=== PATIENT | female | born 1955 | race Caucasian/White ===

== ENCOUNTER → 2017-12-14 | Outpatient (CLI) | payer OTHER ==
[~2017-12-14] MED LIST: ACCOLATE PO; ALBU3IS INH; ALBU90OI INH; AMLO10 PO; AMOCLA875 PO; BENZ100A PO; BUSP15 PO; CEPH500 PO; CITA20 PO; CLON2 PO; CYCL10 PO; Cipro500 MG PO; Crutch1 EACH MISC; ESOM20 PO; ESTRTP VAG; FLUSAL5005 INH; HYDACE5325 PO; HYDPAM25 PO; LEVO750 PO; LEVSOD100 PO; LIDO5TP TOP; LOVA40; Norco 5-325 Ta1 EACH PO; PROC5 PO; PROM25 PO; Prednisone20 MG PO; Pyridium200 MG PO; SUMA25 PO; TIOT18; TRAZ50 PO; Ultram50 MG PO; ZAFI20 PO
[2017-12-14 11:35] LABS: BASOPHILS ABSOLUTE AUTO 0.06 K/mm3 (0.00-0.23); BASOPHILS PERCENT AUTO 1 % (0-2); EOSINOPHILS ABSOLUTE AUTO 0.18 K/mm3 (0.00-0.68); EOSINOPHILS PERCENT AUTO 2 % (0-6); Hematocrit 36.7 % (33.0-51.0); Hemoglobin 12.4 g/dL (11.5-16.0); IMMATURE GRAN ABSOLUTE AUTO 0.04 K/mm3 (0.00-0.10); IMMATURE GRAN PERCENT AUTO 0 % (0-1); LYMPHOCYTES ABSOLUTE AUTO 3.05 K/mm3 (0.84-5.20); LYMPHOCYTES PERCENT AUTO 30 % (21-46); MONOCYTES ABSOLUTE AUTO 0.83 K/mm3 (0.16-1.47); MONOCYTES PERCENT AUTO 8 % (4-13); Mean Corpuscular HGB 29.5 pg (26.0-34.0); Mean Corpuscular HGB Conc 33.8 g/dL (31.5-36.5); Mean Corpuscular Volume 87 fL (80-100); NEUTROPHILS ABSOLUTE AUTO 5.94 K/mm3 (1.96-9.15); NEUTROPHILS PERCENT AUTO 59 % (41-73); Platelet Count 243 K/mm3 (150-400); RDW Coefficient Variation 14.2 % (11.7-14.2); RDW Standard Deviation 45.3 fL (35.1-46.3); Red Blood Cell Count 4.21 M/mm3 (3.80-5.20)
[2017-12-14 11:56] LABS: Alanine Aminotransfer (ALT/SGP 28 U/L (12-78); Albumin, Blood 3.7 g/dL (3.4-5.0); Albumin/Globulin Ratio 0.9 (0.8-1.8); Alk Phos 55 U/L (40-126); Anion Gap 7 mmol/L (6-16); Aspartate Aminotrans (AST/SGOT 20 U/L (12-37); Bilirubin, Total 0.3 mg/dL (0.1-1.0); Blood Urea Nitrogen 14 mg/dL (8-24); Bun/Creatinine Ratio 18.9 (12.0-20.0); CO2, Blood 29 mmol/L (21-32); Calcium, Blood 8.8 mg/dL (8.5-10.1); Chloride, Blood 104 mmol/L (98-108); Creatinine, Blood 0.74 mg/dL (0.40-1.00); Glomerular Filtration Rate >60 (60-); Glucose, Blood 79 mg/dL (70-99); Potassium, Blood 3.7 mmol/L (3.5-5.5); Sodium, Blood 140 mmol/L (136-145); Thyroid Stimulating Hormone 13.308 uIU/mL (0.360-4.800); Total Protein, Blood 7.7 g/dL (6.4-8.2)
== END | disposition home or self-care (01) ==
LOC: LAB EV 11:32
PROVIDERS: Physician Assistant
DX: E03.9 Hypothyroidism, unspecified (principal); R25.2 Cramp and spasm
CPT/HCPCS: 80053; 84443; 85025

== ENCOUNTER 2018-09-30 21:04 | Inpatient (IN) | payer OTHER ==
[~2018-09-30] VITALS: Ht 167.6 cm; Wt 82.2 kg
[2018-09-30] MEDS ORDERED: TIOT18 INH (21:29)
[2018-09-30] MEDS ORDERED: Crestor40 MG PO (21:29)
[2018-09-30] MEDS ORDERED: RANI150EL PO (21:30)
[2018-09-30 22:00] LABS: BASOPHILS ABSOLUTE AUTO 0.05 K/mm3 (0.00-0.23); BASOPHILS PERCENT AUTO 1 % (0-2); EOSINOPHILS ABSOLUTE AUTO 0.19 K/mm3 (0.00-0.68); EOSINOPHILS PERCENT AUTO 3 % (0-6); Hemoglobin 13.1 g/dL (11.5-16.0); IMMATURE GRAN ABSOLUTE AUTO 0.01 K/mm3 (0.00-0.10); IMMATURE GRAN PERCENT AUTO 0 % (0-1); LYMPHOCYTES ABSOLUTE AUTO 2.96 K/mm3 (0.84-5.20); LYMPHOCYTES PERCENT AUTO 47 % (21-46); MONOCYTES ABSOLUTE AUTO 0.52 K/mm3 (0.16-1.47); MONOCYTES PERCENT AUTO 8 % (4-13); Mean Corpuscular HGB Conc 32.8 g/dL (31.5-36.5); Mean Corpuscular Volume 89 fL (80-100); Mean Platelet Volume 9.4 fL (9.1-12.4); NEUTROPHILS ABSOLUTE AUTO 2.57 K/mm3 (1.96-9.15); NEUTROPHILS PERCENT AUTO 41 % (41-73); Platelet Count 237 K/mm3 (150-400); RDW Coefficient Variation 13.8 % (11.7-14.2); RDW Standard Deviation 44.8 fL (35.1-46.3); Red Blood Cell Count 4.52 M/mm3 (3.80-5.20)
[2018-09-30 22:17] LABS: Alanine Aminotransfer (ALT/SGP 17 U/L (12-78); Albumin, Blood 3.6 g/dL (3.4-5.0); Alk Phos 63 U/L (50-136); Anion Gap 8 mmol/L (6-16); Aspartate Aminotrans (AST/SGOT 9 U/L (12-37); Bilirubin, Total 0.4 mg/dL (0.1-1.0); Blood Urea Nitrogen 15 mg/dL (8-24); Bun/Creatinine Ratio 20.5 (12.0-20.0); CO2, Blood 24 mmol/L (21-32); Calcium, Blood 8.4 mg/dL (8.5-10.1); Chloride, Blood 108 mmol/L (98-108); Creatinine, Blood 0.73 mg/dL (0.40-1.00); Globulin, Blood 3.5 g/dL (2.2-4.0); Glomerular Filtration Rate >60 (60-); Glucose, Blood 83 mg/dL (70-99); Potassium, Blood 3.6 mmol/L (3.5-5.5); Sodium, Blood 140 mmol/L (136-145); Total Protein, Blood 7.1 g/dL (6.4-8.2); Troponin I <0.015 ng/mL (0.000-0.040)
[2018-10-01] MEDS ORDERED: CLON2 PO (03:10)
[2018-10-01] MEDS ORDERED: Advair Hfa 230-12 GM PO (03:11)
[2018-10-01] MEDS ORDERED: OXYB5 PO (03:13)
[2018-10-01] MEDS ORDERED: GAVILAX17 GM PO (03:14)
[2018-10-01] MEDS ORDERED: HEARTBURN RELI150 M1 PO (03:15)
[2018-10-01] MEDS ORDERED: ACET500ER PO (03:20)
[2018-10-01] MEDS ORDERED: BENZ100A PO (03:22)
--- NOTE | 2018-10-01 03:30 | NUR ---
PT ADMITTED TO ROOM ICU 9 UNDER PCU STATUS AT 0210. REPORT RECEIVED. PT SLIDE TRANSFERRED TO BED. ALERT AND ORIENTED. PLEASANT AND COOPERATIVE WITH CARE AND ASSESSMENT. SOMEWHAT SOB. VERY GOOD HISTORIAN. WILL REVIEW CHART AND PLAN OF CARE FOR THIS PT.
[2018-10-01] MEDS ORDERED: LAMO100 PO (03:38)
[2018-10-01] MEDS ORDERED: CLARITIN10 MG PO (03:39)
[2018-10-01] MEDS ORDERED: MAGOXI400 PO (03:41)
[2018-10-01] MEDS ORDERED: MONT10T PO (03:42)
[2018-10-01] MEDS ORDERED: Prilosec Otc20 MG PO (03:43)
[2018-10-01 04:09] LABS: BASOPHILS ABSOLUTE AUTO 0.03 K/mm3 (0.00-0.23); BASOPHILS PERCENT AUTO 0 % (0-2); EOSINOPHILS ABSOLUTE AUTO 0.02 K/mm3 (0.00-0.68); EOSINOPHILS PERCENT AUTO 0 % (0-6); Hematocrit 40.5 % (33.0-51.0); IMMATURE GRAN ABSOLUTE AUTO 0.04 K/mm3 (0.00-0.10); IMMATURE GRAN PERCENT AUTO 1 % (0-1); LYMPHOCYTES ABSOLUTE AUTO 0.96 K/mm3 (0.84-5.20); LYMPHOCYTES PERCENT AUTO 13 % (21-46); MONOCYTES ABSOLUTE AUTO 0.09 K/mm3 (0.16-1.47); MONOCYTES PERCENT AUTO 1 % (4-13); Mean Corpuscular HGB Conc 32.1 g/dL (31.5-36.5); Mean Corpuscular Volume 90 fL (80-100); Mean Platelet Volume 9.7 fL (9.1-12.4); NEUTROPHILS PERCENT AUTO 84 % (41-73); Platelet Count 238 K/mm3 (150-400); RDW Coefficient Variation 13.7 % (11.7-14.2); RDW Standard Deviation 45.5 fL (35.1-46.3); Red Blood Cell Count 4.48 M/mm3 (3.80-5.20); White Blood Cell Count 7.24 K/mm3 (4.00-11.30)
[2018-10-01 04:24] LABS: Anion Gap 6 mmol/L (6-16); Blood Urea Nitrogen 11 mg/dL (8-24); Bun/Creatinine Ratio 16.8 (12.0-20.0); CO2, Blood 25 mmol/L (21-32); Calcium, Blood 7.9 mg/dL (8.5-10.1); Chloride, Blood 113 mmol/L (98-108); Creatinine, Blood 0.65 mg/dL (0.40-1.00); Glomerular Filtration Rate >60 (60-); Glucose, Blood 144 mg/dL (70-99); Potassium, Blood 3.2 mmol/L (3.5-5.5); Sodium, Blood 144 mmol/L (136-145)
[2018-10-01 05:52] LABS: Adenovirus Not Detected (NOT DETECT); Bordetella pertussis Not Detected (NOT DETECT); Chlamydophila pneumoniae Not Detected (NOT DETECT); Coronavirus 229E Not Detected (NOT DETECT); Coronavirus HKU1 Not Detected (NOT DETECT); Coronavirus NL63 Not Detected (NOT DETECT); Coronavirus OC43 Not Detected (NOT DETECT); Human Metapneumovirus Not Detected (NOT DETECT); Human Rhinovirus/Enterovirus Not Detected (NOT DETECT); Influenza A/2009-H1 Not Detected (NOT DETECT); Influenza A/H1 Not Detected (NOT DETECT); Influenza A/H3 Not Detected (NOT DETECT); Influenza B Not Detected (NOT DETECT); Mycoplasma pneumoniae Not Detected (NOT DETECT); Parainfluenza Virus 1 Not Detected (NOT DETECT); Parainfluenza Virus 2 Not Detected (NOT DETECT); Parainfluenza Virus 3 Not Detected (NOT DETECT); Parainfluenza Virus 4 Not Detected (NOT DETECT); Respiratory Syncytial Virus Not Detected (NOT DETECT)
[2018-10-01 06:11] LABS: U Amphetamine Screen Not Detected; U Barbituate Screen Not Detected; U Benzodiazapine Screen DETECTED; U Buprenorphine Screen Not Detected; U Cannabinoids Screen DETECTED; U Cocaine Screen Not Detected; U Methadone Screen Not Detected; U Methamphetamine Screen Not Detected; U Opiates Screen Not Detected; U Oxycodone Screen Not Detected; U Phencyclidine Screen Not Detected; U Propoxyphene Screen Not Detected
--- NOTE | 2018-10-01 06:45 | NUR ---
HAVE REQUIRED TO INCREASE OXYGEN TO 4 L/M SECONDARY TO DESATURATIONS TO 88 PERCENT. PT STATES SHE WAS SUPPOSE TO BE USING OXYGEN AT HOME, AND ALSO CPAP AT NIGHT. SHE STATES THAT SHE HAS NOT BEEN ABLE TO TOLERATE THESE. PT HAS BEEN UP TO COMMODE WITH ASSIST. PT VOIDS Q.S. REPORT GIVEN TO ALLI WOLF
[2018-10-01 07:09] LABS: Influenza A Not Detected (NOT DETECT)
--- NOTE | 2018-10-01 12:16 | NUR ---
0715-ASSUMED CAREO OF PT. PT IS SLEEPING SOUNDLY AT THIS TIME. WILL ALLOW PATIENT TO SLEEP IN A LITTLE BIT. 0800-AWAKENED PT. PT IS ALERT AND ORIENTED. DENIES PAIN AT THIS TIME. 0900-PHYSICAL THERAPIST CAME BY TO EVALUATE AND TREAT PT. PT STATED "IT'S NICE TO SIT UP." 1000-PT IS SITTING ON THE CHAIR AT THIS TIME. PT SEEN BY DR. TELLEZ. UPDATED HIM OF PT'S STATUS. 1219-[facility] OLIVERA AT BEDSIDE TALKING PATINET.
--- NOTE | 2018-10-01 12:35 | NUR ---
Patient was sitting up and alert when I entered the room. Patient immediately shared that about 3 years ago she had 4 family members in a one month span of time. Patient also expressed concern for her family once they hear news of her condition. I conducted a life review, established therapeutic alliance, explored relidious beliefs and provided anxiety containment. I spent some time discussing her grief process and normalizing her experience. I also provided prayer. Patient responded well to all interventions, stating that the prayer was refreshing, her spirits were lifted and that I could be her new brick paver.
--- NOTE | 2018-10-01 13:24 | NUR ---
PT HAD A FEW RUNS OF V-TACH. PT IS ASYMPTOMATIC. INFORMED DR. TELLEZ. ORDERS RECEIVED.
[2018-10-01 14:24] LABS: Anion Gap 7 mmol/L (6-16); Blood Urea Nitrogen 12 mg/dL (8-24); Bun/Creatinine Ratio 19.9 (12.0-20.0); CO2, Blood 22 mmol/L (21-32); Calcium, Blood 8.9 mg/dL (8.5-10.1); Chloride, Blood 110 mmol/L (98-108); Glomerular Filtration Rate >60 (60-); Glucose, Blood 173 mg/dL (70-99); Magnesium, Blood 2.1 mg/dL (1.6-2.4); Potassium, Blood 4.2 mmol/L (3.5-5.5); Sodium, Blood 139 mmol/L (136-145)
[2018-10-01 14:55] LABS: Troponin I <0.015 ng/mL (0.000-0.040)
[2018-10-01 14:56] LABS: Thyroid Stimulating Hormone 0.165 uIU/mL (0.360-4.800)
--- NOTE | 2018-10-01 14:59 | NUR ---
DR. TELLEZ CAME BY TO SEE PT. UPDATED HIM OF PT'S STATUS.
--- NOTE | 2018-10-01 15:49 | NUR ---
ECHOCARDIOGRAM DONE AT THIS TIME.
--- NOTE | 2018-10-01 16:33 | NUR ---
SEEN BY DR. JIMENEZ. UPDATED HER OF PT'S STATUS.
--- NOTE | 2018-10-01 17:03 | NUR ---
Echocardiogram completed.
--- NOTE | 2018-10-01 18:15 | NUR ---
SHIFT SUMMARY: PT STILL HAS OCCASSIONAL PRODUCTIVE COUGH. PT HAS BEEN OUT OF BED TO THE CHAIR MOST OF THE DAY WITH A FEW TRIPS TO THE BATHROOM. ECHOCARDIOGRAM DONE TODAY. STILL ON O2 @ 2LPM NC WITH OU2 SATURATION >90%. AFEBRILE.
--- NOTE | 2018-10-01 19:19 | NUR ---
ASSUMED CARE OF PT, BEDSIDE REPORT RECEIVED. PT IS RESTING QUIETLY RECLINING IN BED, SENTANCES ARE FULL, NO INCREASED WORK OF BREATHING NOTED WITH INCREASE IN ACTIVITY UP TO TOILET. PT DENIES COUGH BEING PRODUCTIVE OF SPUTUM TODAY, STATES THAT IT HAS ON OCCASION BEEN PRODUCTIVE AT HOME.
[2018-10-02 03:40] LABS: BASOPHILS ABSOLUTE AUTO 0.01 K/mm3 (0.00-0.23); BASOPHILS PERCENT AUTO 0 % (0-2); EOSINOPHILS PERCENT AUTO 0 % (0-6); Hematocrit 41.3 % (33.0-51.0); Hemoglobin 13.3 g/dL (11.5-16.0); IMMATURE GRAN ABSOLUTE AUTO 0.07 K/mm3 (0.00-0.10); IMMATURE GRAN PERCENT AUTO 1 % (0-1); LYMPHOCYTES ABSOLUTE AUTO 1.01 K/mm3 (0.84-5.20); LYMPHOCYTES PERCENT AUTO 8 % (21-46); MONOCYTES ABSOLUTE AUTO 0.38 K/mm3 (0.16-1.47); MONOCYTES PERCENT AUTO 3 % (4-13); Mean Corpuscular HGB 29.2 pg (26.0-34.0); Mean Corpuscular HGB Conc 32.2 g/dL (31.5-36.5); Mean Corpuscular Volume 91 fL (80-100); Mean Platelet Volume 9.6 fL (9.1-12.4); NEUTROPHILS PERCENT AUTO 89 % (41-73); Platelet Count 258 K/mm3 (150-400); Red Blood Cell Count 4.56 M/mm3 (3.80-5.20); White Blood Cell Count 13.27 K/mm3 (4.00-11.30)
[2018-10-02 03:59] LABS: Anion Gap 5 mmol/L (6-16); Blood Urea Nitrogen 10 mg/dL (8-24); Bun/Creatinine Ratio 15.5 (12.0-20.0); CO2, Blood 27 mmol/L (21-32); Calcium, Blood 8.8 mg/dL (8.5-10.1); Chloride, Blood 111 mmol/L (98-108); Creatinine, Blood 0.65 mg/dL (0.40-1.00); Glomerular Filtration Rate >60 (60-); Glucose, Blood 157 mg/dL (70-99); Sodium, Blood 143 mmol/L (136-145)
--- NOTE | 2018-10-02 06:32 | NUR ---
PT RESTS QUIETLY THROUGHOUT SHIFT, RIGHT SHOULDER PAIN CONTINUES, CONTROLLED WITH TYLENOL ADMINISTERED X 2 THIS SHIFT. C/O NAUSEA AT HS, ZOFRAN ADMIN, PT REPORTED THAT NAUSEA LEVEL REMAINED UNCHANGED, STATED THAT SHE BELIEVES THAT STOMACH UPSET IS RELATED TO VEGETABLES THAT SHE ATE WITH DINNER LAST NOC. ORDER OBTAINED FOR GI COCKTAIL FOLLOWING WHICH PT REPORTED IMPROVEMENT IN NAUSEA. PT C/O DULL SUBSTERNAL CHEST PAIN NEAR MIDNOC, EKG OBTAINED, NORMAL SINUS RHYTHM, PT DID REPORT IMPROVEMENT IN PAIN FOLLOWING GI COCKTAIL ADMINISTRATION. OTHERWISE NO ACUTE CHANGES THIS SHIFT.
--- NOTE | 2018-10-02 10:23 | NUR ---
0730-ASSUMED CARE OF PT. PT IS ASLEEP AT THIS TIME. STILL WITH OCCASSIONAL PRODUCTIVE COUGH. 0835-DR. TELLEZ CAME BY TO SEE PT. UPDATED HIM OF PT'S STATUS. PHYSICAL THERAPIST CAME TO WORK WITH PT WELL. 0930-PT SITTING ON THE CHAIR AT THIS TIME. EATING BREAKFAST. AMBULATING IN THE ROOM USING THE WALKER. REMINDED PT TO ALWAYS CALL WHEN SHE NEEDED TO GO TO THE BATHROOM AND ONCE SHE'S DONE USING THE TOILET.
--- NOTE | 2018-10-02 16:32 | NUR ---
PT WAS TRANSFERED TO ROOM 343. GAVE REPORT TO ALLI MCLEOD IN MEDICAL FLOOR.
--- NOTE | 2018-10-02 17:56 | NUR ---
SHIFT SUMMARY PATIENT PLEASANT. BROUGHT FROM ICU AT 1600 HOUR. PATIENT ALERT AND ORIENTED, NO ACUTE CONCERNS AT THIS TIME. SHE IS 1PA IN THE ROOM TO THE BATHROOM. STILL HAS NOT HAD A BOWEL MOVEMENT.
--- NOTE | 2018-10-02 18:40 | NUR ---
PATIENT STARTED COMPLAINING OF CHEST PAIN. SHE WAS ON THE TOILET TRYING TO HAVE A BOWEL MOVEMENT. PATIENT IS CONCERNED ABUT HER CHEST. PATIENT HAD THE SAME PAIN LAST NIGHT IN THE ICU. EKG WAS OBTAINED LAST NIGHT AND WAS NORMAL PATIENT IN NORMAL SINUS RHYTHM. PATIENT WAS GIVEN GI COCKTAIL THAT TOOK THE PAIN AWAY LAST NIGHT IN THE ER. PATIENT WAS GIVEN PRN GI COCKTAIL TO MANAGE. WILL REASSESS TONIGHT.
[2018-10-03 05:18] LABS: BASOPHILS ABSOLUTE AUTO 0.02 K/mm3 (0.00-0.23); BASOPHILS PERCENT AUTO 0 % (0-2); EOSINOPHILS PERCENT AUTO 0 % (0-6); Hematocrit 41.3 % (33.0-51.0); Hemoglobin 13.5 g/dL (11.5-16.0); IMMATURE GRAN ABSOLUTE AUTO 0.11 K/mm3 (0.00-0.10); IMMATURE GRAN PERCENT AUTO 1 % (0-1); LYMPHOCYTES ABSOLUTE AUTO 1.05 K/mm3 (0.84-5.20); LYMPHOCYTES PERCENT AUTO 8 % (21-46); MONOCYTES ABSOLUTE AUTO 0.52 K/mm3 (0.16-1.47); MONOCYTES PERCENT AUTO 4 % (4-13); Mean Corpuscular HGB 29.4 pg (26.0-34.0); Mean Corpuscular HGB Conc 32.7 g/dL (31.5-36.5); Mean Corpuscular Volume 90 fL (80-100); Mean Platelet Volume 9.5 fL (9.1-12.4); NEUTROPHILS ABSOLUTE AUTO 11.75 K/mm3 (1.96-9.15); NEUTROPHILS PERCENT AUTO 87 % (41-73); Platelet Count 272 K/mm3 (150-400); RDW Coefficient Variation 14.2 % (11.7-14.2); RDW Standard Deviation 47.3 fL (35.1-46.3); Red Blood Cell Count 4.59 M/mm3 (3.80-5.20); White Blood Cell Count 13.45 K/mm3 (4.00-11.30)
[2018-10-03 05:37] LABS: Anion Gap 6 mmol/L (6-16); Blood Urea Nitrogen 11 mg/dL (8-24); Bun/Creatinine Ratio 20.1 (12.0-20.0); CO2, Blood 26 mmol/L (21-32); Calcium, Blood 8.7 mg/dL (8.5-10.1); Chloride, Blood 108 mmol/L (98-108); Creatinine, Blood 0.55 mg/dL (0.40-1.00); Glomerular Filtration Rate >60 (60-); Glucose, Blood 136 mg/dL (70-99); Sodium, Blood 140 mmol/L (136-145)
--- NOTE | 2018-10-03 07:20 | NUR ---
SHIFT SUMMARY PT REPORTS SHE HAD DIFFICULTY SLEEPING LAST NIGHT DUE TO HER STOMACH HURTING. PT WAS MEDICATED THIS AM W/GI COCKTAIL PER ORDERS & HAD MEDIUM SOFT LIGHT GREEN/BROWN BM. VSS. AOX4. SPO2 @91-94% ON 2L O2. LUNGS SOUND COURSE T/O, PT HAS E/U BREATHING W/OCCASIONAL PRODUCTIVE MOIST COUGH, SMALL AMOUNT GREENISH/YELLOW SPUTUM. REPORTS PAIN IN RIGHT SHOULDER BUT DENIES NEED FOR PAIN MEDICATION. CALL LIGHT IS IN REACH & BED IS IN LOWEST POSITION.
--- NOTE | 2018-10-03 18:31 | NUR ---
SHIFT SUMMARY PATIENT HAS BEEN PLEASANT. INDEPENDENT IN HER ROOM. HAD A CHEST XRAY THIS MORNING. THE RESULTS HAVE BEEN GIVEN TO THE PATIENT. SHE IS PLEASANT AND JUST WANTS TO GO HOME. SHE KNOWS THAT SHE IS FEELING BETTER HAS BEEN TITRATED DOWN TO 1L O2 VIA NC. SHE REPORTS THAT SHE IS FEELING GOOD AND DENIES SHORTNESS OF BREATH.
--- NOTE | 2018-10-04 04:12 | NUR ---
SHIFT SUMMARY PT SLEPT SOUNDLY T/O NIGHT. NO ACUTE CHANGES. VSS. AOX4. SPO2 @93-98% ON 1L O2. LUNGS SOUND COURSE T/O, PT HAS OCCASIONAL PRODUCTIVE COUGH W/SCANT AMOUNT GREENISH/YELLOW SPUTUM. DENIES N/V & SOB WHILE @REST. REPORTS 9/10 PAIN IN R. SHOULDER MEDICATED 1X W/ULTRAM PER ORDERS. CALL LIGHT IN REACH & BED IN LOWEST POSITION.
[2018-10-04 06:36] LABS: BASOPHILS ABSOLUTE AUTO 0.01 K/mm3 (0.00-0.23); BASOPHILS PERCENT AUTO 0 % (0-2); EOSINOPHILS PERCENT AUTO 0 % (0-6); Hematocrit 43.5 % (33.0-51.0); Hemoglobin 14.2 g/dL (11.5-16.0); IMMATURE GRAN ABSOLUTE AUTO 0.05 K/mm3 (0.00-0.10); IMMATURE GRAN PERCENT AUTO 1 % (0-1); LYMPHOCYTES ABSOLUTE AUTO 1.69 K/mm3 (0.84-5.20); LYMPHOCYTES PERCENT AUTO 20 % (21-46); MONOCYTES ABSOLUTE AUTO 0.55 K/mm3 (0.16-1.47); MONOCYTES PERCENT AUTO 7 % (4-13); Mean Corpuscular HGB Conc 32.6 g/dL (31.5-36.5); Mean Corpuscular Volume 89 fL (80-100); Mean Platelet Volume 9.6 fL (9.1-12.4); NEUTROPHILS ABSOLUTE AUTO 6.11 K/mm3 (1.96-9.15); NEUTROPHILS PERCENT AUTO 73 % (41-73); Platelet Count 292 K/mm3 (150-400); RDW Coefficient Variation 14.4 % (11.7-14.2); RDW Standard Deviation 46.5 fL (35.1-46.3); White Blood Cell Count 8.41 K/mm3 (4.00-11.30)
[2018-10-04 06:54] LABS: Anion Gap 5 mmol/L (6-16); Blood Urea Nitrogen 14 mg/dL (8-24); Bun/Creatinine Ratio 21.6 (12.0-20.0); CO2, Blood 27 mmol/L (21-32); Calcium, Blood 8.9 mg/dL (8.5-10.1); Chloride, Blood 108 mmol/L (98-108); Creatinine, Blood 0.65 mg/dL (0.40-1.00); Glomerular Filtration Rate >60 (60-); Glucose, Blood 129 mg/dL (70-99); Potassium, Blood 4.2 mmol/L (3.5-5.5); Sodium, Blood 140 mmol/L (136-145)
--- NOTE | 2018-10-04 08:40 | NUR ---
PT REPORTING CHEST PRESSURE, STATES FEELS LIKE "SOMETHING PUSHING ME INTO THE BED" RATING 8-9/[address] HAMZAH MCCORMICK, NEW ORDERS FOR STAT EKG, 1 MG ATIVAN PO NOW AND NITRO SL 0.4MG NOW. ADMINISTERED NITRO AND ATIVAN, DR MCCORMICK AT BEDSIDE FOR EKG. ADMINISTERED ULTRAM FOR REMAIN PAIN. CLARIFIED THAT IT IS OK TO CONTINUE WITH ANTIANXIETY MEDICATIONS. NEW ORDERS TO HOLD NEXT DOSE OF SOLUMEDROL. WILL CONTINUE TO MONITOR.
[2018-10-04] MEDS ORDERED: AZIT250 PO (16:01)
[2018-10-04] MEDS ORDERED: ACET325 PO (16:01)
[2018-10-04] MEDS ORDERED: TRAM50 PO (16:02)
--- NOTE | 2018-10-04 18:06 | NUR ---
DISCHARGE SUMMARY PT A&OX4. ANXIOUS AT TIMES, CALM AND COOPERATIVE WITH CARE. PT RESTING IN BED DURING SHIFT, SBA WITH FWW IN ROOM. PT REPORTS CHEST PRESSURE THIS AM, RESOLVED AFTER 1 DOSE OF NITRO, 1 MG PO ATIVAN AND DOSE OF ULTRAM. DR MCCORMICK AWARE AND AT BEDSIDE THIS AM. DR MCCORMICK, NEW ORDER HOLD IV STEROID. PT REPORTS HEADACHE, MEDICATED PER EMAR. PT SOB WITH EXERTION, >90% ON 1L O2 VIA NC, RECEIVING BREATHING TREATMENTS. HOME O2 EVALUATION COMPLETED, PT NEEDS O2 DURING EXERCISE. PT REPORTS NAUSEA WITH LUNCH, MEDICATED PER EMAR. PT RECEIVING PO ANTIBIOTICS. VSS. NO OTHER ACUTE CHANGES NOTED DURING SHIFT. PT EDUCATED ON DISCHARGE INSTRUCTIONS, MEDICATIONS, OXYGEN USE AT HOME AND FOLLOW UP APPOINTMENTS. PT INFORMATION FAXED TO [facility] PER STAFF, NATAN, REQUEST. PT LEFT ROOM VIA WHEELCHAIR AT 1700. PT STABLE UPON DISCHARGE.
== END 2018-10-04 17:05 | disposition home or self-care (01) | DRG 190 ==
LOC: ER 21:04 → ICUW 10-01 00:34 → ERHOLD 10-01 00:34 → ICUW 10-01 02:08 → MEDS 10-02 16:20 → ENPENDDIS 10-04 14:00 → MEDS 10-04 17:05
PROVIDERS: Emergency Medicine; Family Medicine; Internal Medicine Cardiovascular Disease; Nurse Practitioner Acute Care; ADMIT Internal Medicine
DX: J44.1 Chronic obstructive pulmonary disease with (acute) exacerbation (principal); J96.01 Acute respiratory failure with hypoxia; I47.1 Supraventricular tachycardia; I10 Essential (primary) hypertension; R29.6 Repeated falls; E87.6 Hypokalemia; R73.9 Hyperglycemia, unspecified; T38.0X5A Adverse effect of glucocorticoids and synthetic analogues, initial encounter; G47.33 Obstructive sleep apnea (adult) (pediatric); E03.9 Hypothyroidism, unspecified; K21.9 Gastro-esophageal reflux disease without esophagitis; F31.9 Bipolar disorder, unspecified; K59.00 Constipation, unspecified; M25.511 Pain in right shoulder; F41.9 Anxiety disorder, unspecified; Z91.81 History of falling; Z88.6 Allergy status to analgesic agent; Z88.8 Allergy status to other drugs, medicaments and biological substances; Z79.899 Other long term (current) drug therapy
CPT/HCPCS: 36415; 71046; 73010; 80048; 80053; 82947; 83036; 83735; 84439; 84443; 84484; 85025; 87486; 87581; 87633; 87798; 93005; 93010; 93306; 94640; 94644; 94760; 94761; 96361; 96365; 96375; 97110; 97116; 97162; 97530; 99285-25; J0696; J1650; J2405; J2920; J2930; J3010; J3480; J7030; J7050

== ENCOUNTER 2018-12-28 06:54 | Day surgery (SDC) | payer OTHER ==
[~2018-12-28] VITALS: Ht 167.6 cm; Wt 77.7 kg
[~2018-12-28 06:54] MED LIST changes: +ACET325 PO; +ACET500ER PO; +AZIT250 PO; +Advair Hfa 230-12 GM PO; +CLARITIN10 MG PO; +Crestor40 MG PO; +GAVILAX17 GM PO; +HEARTBURN RELI150 M1 PO; +LAMO100 PO; +MAGOXI400 PO; +MONT10T PO; +OXYB5 PO; +Prilosec Otc20 MG PO; +RANI150EL PO; +TIOT18 INH; +TRAM50 PO
== END 2018-12-28 08:59 | disposition home or self-care (01) ==
LOC: ORSCSDS 06:54
PROVIDERS: Surgery
PROC: 0DBK8ZX Excision of Ascending Colon, Via Natural or Artificial Opening Endoscopic, Diagnostic (ICD-10-PCS; principal; 2018-12-28 08:00)
PROC: 0DBH8ZX Excision of Cecum, Via Natural or Artificial Opening Endoscopic, Diagnostic (ICD-10-PCS; principal; 2018-12-28 08:00)
PROC: 0DBL8ZX Excision of Transverse Colon, Via Natural or Artificial Opening Endoscopic, Diagnostic (ICD-10-PCS; principal; 2018-12-28 08:00)
PROC: 0DBM8ZX Excision of Descending Colon, Via Natural or Artificial Opening Endoscopic, Diagnostic (ICD-10-PCS; principal; 2018-12-28 08:00)
DX: Z12.11 Encounter for screening for malignant neoplasm of colon (principal); Z86.010 Personal history of colon polyps; D12.3 Benign neoplasm of transverse colon; D12.2 Benign neoplasm of ascending colon; D12.0 Benign neoplasm of cecum; D12.4 Benign neoplasm of descending colon; G47.33 Obstructive sleep apnea (adult) (pediatric); J44.9 Chronic obstructive pulmonary disease, unspecified; I10 Essential (primary) hypertension; Z79.899 Other long term (current) drug therapy
CPT/HCPCS: 88305; J0330; J1980; J2405; J2704; J7120

== ENCOUNTER → 2019-01-13 | Outpatient (CLI) | payer OTHER | LOC: LAB EV 08:06 → LAB SHORT 08:06 | DX: R05 Cough (principal) | CPT/HCPCS: 87070; 87205 ==

== ENCOUNTER 2019-02-17 11:09 | Day surgery (SDC) | payer OTHER ==
[~2019-02-17] VITALS: Ht 167.6 cm; Wt 74.4 kg
[~2019-02-17 11:09] MED LIST changes: +ACID REDUCER20 MG PO; +ALBU90OI6 INH; +AMLO5 PO; +BUDE6HFA INH; +HYDPAM100 PO; +Imitrex100 MG PO; +Mucinex D 1,201 EACH PO; +[UNRECOGNIZED DRUG - OTHER]
--- NOTE | 2019-02-17 13:00 | NUR ---
02/17/19 Danay Villa RN REPORTED BILATERAL WHEEZES TO DR CASTELLANOS. SHANICE ORDERED BY DR CASTELLANOS. PT IS NOW DOING NEBULIZER TREATMENT.
== END 2019-02-17 14:23 | disposition home or self-care (01) ==
LOC: ORSCSDS 11:09
PROVIDERS: Student in an Organized Health Care Education/Training Program
PROC: 0DB68ZX Excision of Stomach, Via Natural or Artificial Opening Endoscopic, Diagnostic (ICD-10-PCS; principal; 2019-02-17 12:45)
DX: K21.9 Gastro-esophageal reflux disease without esophagitis (principal); K29.70 Gastritis, unspecified, without bleeding; K22.8 Other specified diseases of esophagus; I10 Essential (primary) hypertension; J44.9 Chronic obstructive pulmonary disease, unspecified; G47.33 Obstructive sleep apnea (adult) (pediatric); J45.909 Unspecified asthma, uncomplicated; Z79.899 Other long term (current) drug therapy
CPT/HCPCS: 88305; 88312; 88342; J2704; J7120

== ENCOUNTER → 2019-05-17 | Outpatient (CLI) | payer OTHER | LOC: LAB SHORT 20:13 → LAB 20:13 | PROVIDERS: Nurse Practitioner Family | DX: Z01.419 Encounter for gynecological examination (general) (routine) without abnormal findings (principal) | CPT/HCPCS: G0145 ==

== ENCOUNTER 2019-06-11 10:23 | Emergency (ER) | payer OTHER ==
[~2019-06-11] VITALS: Ht 167.6 cm; Wt 64.4 kg
[2019-06-11 11:29] LABS: BASOPHILS ABSOLUTE AUTO 0.05 K/mm3 (0.00-0.23); BASOPHILS PERCENT AUTO 1 % (0-2); EOSINOPHILS PERCENT AUTO 2 % (0-6); Hematocrit 43.2 % (33.0-51.0); Hemoglobin 14.6 g/dL (11.5-16.0); IMMATURE GRAN ABSOLUTE AUTO 0.02 K/mm3 (0.00-0.10); IMMATURE GRAN PERCENT AUTO 0 % (0-1); LYMPHOCYTES ABSOLUTE AUTO 2.75 K/mm3 (0.84-5.20); LYMPHOCYTES PERCENT AUTO 32 % (21-46); MONOCYTES ABSOLUTE AUTO 0.68 K/mm3 (0.16-1.47); MONOCYTES PERCENT AUTO 8 % (4-13); Mean Corpuscular HGB 29.6 pg (26.0-34.0); Mean Corpuscular HGB Conc 33.8 g/dL (31.5-36.5); Mean Corpuscular Volume 88 fL (80-100); Mean Platelet Volume 9.8 fL (9.1-12.4); NEUTROPHILS ABSOLUTE AUTO 4.83 K/mm3 (1.96-9.15); NEUTROPHILS PERCENT AUTO 57 % (41-73); Platelet Count 241 K/mm3 (150-400); RDW Coefficient Variation 13.5 % (11.7-14.2); RDW Standard Deviation 43.4 fL (35.1-46.3); Red Blood Cell Count 4.93 M/mm3 (3.80-5.20); White Blood Cell Count 8.53 K/mm3 (4.00-11.30)
[2019-06-11 11:42] LABS: Alanine Aminotransfer (ALT/SGP 17 U/L (12-78); Albumin, Blood 3.7 g/dL (3.4-5.0); Albumin/Globulin Ratio 1.1 (0.8-1.8); Alk Phos 64 U/L (50-136); Anion Gap 4 mmol/L (6-16); Aspartate Aminotrans (AST/SGOT 9 U/L (12-37); Bilirubin, Total 0.3 mg/dL (0.1-1.0); Blood Urea Nitrogen 8 mg/dL (8-24); Bun/Creatinine Ratio 10.9 (12.0-20.0); CO2, Blood 26 mmol/L (21-32); Calcium, Blood 8.9 mg/dL (8.5-10.1); Chloride, Blood 112 mmol/L (98-108); Creatinine, Blood 0.74 mg/dL (0.40-1.00); Globulin, Blood 3.5 g/dL (2.2-4.0); Glomerular Filtration Rate >60 (60-); Glucose, Blood 85 mg/dL (70-99); Potassium, Blood 3.5 mmol/L (3.5-5.5); Sodium, Blood 142 mmol/L (136-145); Total Protein, Blood 7.2 g/dL (6.4-8.2); Troponin I <0.015 ng/mL (0.000-0.040)
== END 2019-06-11 15:35 | disposition home or self-care (01) ==
LOC: ER 10:23
PROVIDERS: Physician Assistant
DX: S09.90XA Unspecified injury of head, initial encounter (principal); S40.011A Contusion of right shoulder, initial encounter; J44.9 Chronic obstructive pulmonary disease, unspecified; K21.9 Gastro-esophageal reflux disease without esophagitis; I10 Essential (primary) hypertension; F31.9 Bipolar disorder, unspecified; F41.9 Anxiety disorder, unspecified; E03.9 Hypothyroidism, unspecified; Z88.6 Allergy status to analgesic agent; Z88.8 Allergy status to other drugs, medicaments and biological substances; Z79.899 Other long term (current) drug therapy; W01.10XA Fall on same level from slipping, tripping and stumbling with subsequent striking against unspecified object, initial encounter
CPT/HCPCS: 36415; 70450; 72100; 73030; 80053; 84484; 85025; 93005; 93010; 99284-25

== ENCOUNTER → 2019-06-13 | Outpatient (CLI) | payer OTHER ==
[2019-06-14 15:21] LABS: Appearance, Urine Hazy (Clear); Bilirubin, Urine Neg (Neg); Blood, Urine 2+ (Neg); Color, Urine Yellow (P-Yellow); Glucose Qualitative, Urine Neg (Neg); Ketones, Urine Neg (Neg); Leukocyte Esterase, Urine 3+ (Neg); Nitrite, Urine Neg (Neg); Protein, Urine 1+ (Neg); Urobilinogen, Urine NORM (Normal)
[2019-06-14 16:08] LABS: White Blood Cells, Urine TNTC /hpf (0-5)
[2019-06-14 16:10] LABS: Bacteria Many /hpf; Squamous Epithelial Cells Few /hpf (Few)
== END ==
LOC: LAB 18:00 → LAB SHORT 18:00
PROVIDERS: Nurse Practitioner Family
DX: N39.0 Urinary tract infection, site not specified (principal)
CPT/HCPCS: 81001; 87077; 87086; 87186

== ENCOUNTER → 2019-07-26 | Outpatient (CLI) | payer OTHER ==
[~2019-07-26] MED LIST changes: +OXYC5 PO
[2019-07-26 20:10] LABS: Appearance, Urine Clear (Clear); Bilirubin, Urine Neg (Neg); Blood, Urine Neg (Neg); Color, Urine Yellow (P-Yellow); Glucose Qualitative, Urine Neg (Neg); Ketones, Urine Neg (Neg); Leukocyte Esterase, Urine 1+ (Neg); Nitrite, Urine Neg (Neg); Protein, Urine 1+ (Neg); Specific Gravity, Urine 1.005 (1.003-1.022); Urobilinogen, Urine NORM (Normal)
[2019-07-26 20:17] LABS: Bacteria Mod /hpf; Red Blood Cells, Urine Not Seen /hpf (0-2); Squamous Epithelial Cells Rare /hpf (Few); White Blood Cells, Urine 0-2 /hpf (0-5)
== END ==
LOC: LAB 19:37 → LAB SHORT 19:37
PROVIDERS: Nurse Practitioner Family
DX: N39.0 Urinary tract infection, site not specified (principal)
CPT/HCPCS: 81001; 87086

== ENCOUNTER 2019-07-29 17:22 | Emergency (ER) | payer OTHER ==
[~2019-07-29] VITALS: Ht 167.6 cm; Wt 56.7 kg
[~2019-07-29 17:22] MED LIST changes: -OXYC5 PO
[2019-07-29] MEDS ORDERED: OXYC5 PO (17:28)
[2019-07-29 18:07] LABS: Hematocrit 40.3 % (33.0-51.0); Hemoglobin 13.5 g/dL (11.5-16.0); Mean Corpuscular HGB Conc 33.5 g/dL (31.5-36.5); Mean Corpuscular Volume 90 fL (80-100); Mean Platelet Volume 9.5 fL (9.1-12.4); Platelet Count 290 K/mm3 (150-400); RDW Coefficient Variation 12.8 % (11.7-14.2); RDW Standard Deviation 42.4 fL (35.1-46.3); White Blood Cell Count 7.62 K/mm3 (4.00-11.30)
[2019-07-29 18:32] LABS: Anion Gap 8 mmol/L (6-16); Blood Urea Nitrogen 12 mg/dL (8-24); Bun/Creatinine Ratio 17.2 (12.0-20.0); CO2, Blood 24 mmol/L (21-32); Calcium, Blood 8.9 mg/dL (8.5-10.1); Chloride, Blood 106 mmol/L (98-108); Glomerular Filtration Rate >60 (60-); Glucose, Blood 62 mg/dL (70-99); Sodium, Blood 138 mmol/L (136-145)
== END 2019-07-29 20:28 | disposition short-term general hospital (02) ==
LOC: ER 17:22
PROVIDERS: Emergency Medicine
DX: K22.2 Esophageal obstruction (principal); E87.6 Hypokalemia; I10 Essential (primary) hypertension; K21.9 Gastro-esophageal reflux disease without esophagitis; J44.9 Chronic obstructive pulmonary disease, unspecified; F31.9 Bipolar disorder, unspecified; Z88.6 Allergy status to analgesic agent; Z79.899 Other long term (current) drug therapy; Z79.891 Long term (current) use of opiate analgesic
CPT/HCPCS: 36415; 80048; 85027; 96361; 96365; 99284-25; J7030

== ENCOUNTER → 2019-09-05 | Outpatient (CLI) | payer OTHER ==
[~2019-09-05] MED LIST changes: +OXYC5 PO
[2019-09-06 17:20] LABS: Appearance, Urine Clear (Clear); Bilirubin, Urine Neg (Neg); Blood, Urine 1+ (Neg); Color, Urine Yellow (P-Yellow); Glucose Qualitative, Urine Neg (Neg); Ketones, Urine Neg (Neg); Leukocyte Esterase, Urine 3+ (Neg); Nitrite, Urine Pos (Neg); Protein, Urine 1+ (Neg); Urobilinogen, Urine NORM (Normal)
[2019-09-06 18:16] LABS: Bacteria Many /hpf; Red Blood Cells, Urine 0-2 /hpf (0-2); Squamous Epithelial Cells Few /hpf (Few)
== END ==
LOC: LAB SHORT 18:00 → LAB 18:00
PROVIDERS: Nurse Practitioner Family
DX: N39.0 Urinary tract infection, site not specified (principal)
CPT/HCPCS: 81001; 87077; 87086; 87186

== ENCOUNTER → 2019-10-24 | Outpatient (CLI) | payer OTHER | LOC: LAB 19:36 → LAB SHORT 19:36 | DX: G43.909 Migraine, unspecified, not intractable, without status migrainosus (principal) | CPT/HCPCS: 87070; 87205 ==

== ENCOUNTER → 2019-12-06 | Outpatient (CLI) | payer OTHER | LOC: LAB SHORT 10:40 → LAB EV 10:40 | DX: R35.0 Frequency of micturition (principal) | CPT/HCPCS: 87086 ==

== ENCOUNTER → 2020-01-05 | Outpatient (CLI) | payer OTHER ==
[2020-01-05 13:40] LABS: Thyroid Stimulating Hormone 7.23 uIU/mL (0.360-4.800)
[2020-01-09 17:02] LABS: Free Thyroxine 1.08 ng/dL (0.70-1.60)
== END ==
LOC: LAB SHORT 11:58 → LAB 11:58
PROVIDERS: Nurse Practitioner Family
DX: E03.9 Hypothyroidism, unspecified (principal)
CPT/HCPCS: 84439; 84443

== ENCOUNTER → 2020-02-13 | Outpatient (CLI) | payer OTHER ==
[2020-02-14 17:44] LABS: Bilirubin, Urine Neg (Neg); Blood, Urine Neg (Neg); Glucose Qualitative, Urine Neg (Neg); Ketones, Urine Neg (Neg); Leukocyte Esterase, Urine Neg (Neg); Nitrite, Urine Neg (Neg); Protein, Urine Neg (Neg); Urobilinogen, Urine NORM (Normal)
[2020-02-14 18:24] LABS: Appearance, Urine Clear (Clear); Color, Urine Pale Yellow (P-Yellow)
== END ==
LOC: LAB SHORT 21:00 → LAB 21:00
PROVIDERS: Nurse Practitioner Family
DX: N39.0 Urinary tract infection, site not specified (principal)
CPT/HCPCS: 81003; 87086

== ENCOUNTER → 2020-03-02 | Outpatient (CLI) | payer OTHER ==
[2020-03-02 12:54] LABS: Free Thyroxine 1.14 ng/dL (0.70-1.60)
[2020-03-02 12:57] LABS: Thyroid Stimulating Hormone 7.88 uIU/mL (0.360-4.800)
== END ==
LOC: LAB SHORT 11:08 → LAB 11:08
PROVIDERS: Nurse Practitioner Family
DX: E03.9 Hypothyroidism, unspecified (principal)
CPT/HCPCS: 84439; 84443

== ENCOUNTER → 2020-05-24 | Outpatient (CLI) | payer OTHER ==
[2020-05-25 15:28] LABS: Appearance, Urine Clear (Clear); Bilirubin, Urine Neg (Neg); Blood, Urine Neg (Neg); Color, Urine Yellow (P-Yellow); Glucose Qualitative, Urine Neg (Neg); Ketones, Urine Neg (Neg); Leukocyte Esterase, Urine Neg (Neg); Nitrite, Urine Neg (Neg); Protein, Urine Neg (Neg); Urobilinogen, Urine NORM (Normal)
== END ==
LOC: LAB 19:40 → LAB SHORT 19:40
PROVIDERS: Nurse Practitioner Family
DX: N39.0 Urinary tract infection, site not specified (principal)
CPT/HCPCS: 81003

== ENCOUNTER → 2020-05-25 | Outpatient (CLI) | payer OTHER ==
[2020-05-25 15:58] LABS: Alanine Aminotransfer (ALT/SGP 28 U/L (12-78); Albumin, Blood 3.6 g/dL (3.4-5.0); Alk Phos 46 U/L (50-136); Anion Gap 2 mmol/L (6-16); Aspartate Aminotrans (AST/SGOT 18 U/L (12-37); Bilirubin, Total 0.3 mg/dL (0.1-1.0); Blood Urea Nitrogen 10 mg/dL (8-24); Bun/Creatinine Ratio 12.5 (12.0-20.0); CO2, Blood 30 mmol/L (21-32); Calcium, Blood 8.9 mg/dL (8.5-10.1); Chloride, Blood 110 mmol/L (98-108); Globulin, Blood 3.5 g/dL (2.2-4.0); Glomerular Filtration Rate >60 (60-); Glucose, Blood 85 mg/dL (70-99); Potassium, Blood 4.3 mmol/L (3.5-5.5); Sodium, Blood 142 mmol/L (136-145); Total Protein, Blood 7.1 g/dL (6.4-8.2)
== END ==
LOC: LAB SHORT 13:57
PROVIDERS: Nurse Practitioner Family
DX: E03.9 Hypothyroidism, unspecified (principal); R63.5 Abnormal weight gain; R94.6 Abnormal results of thyroid function studies
CPT/HCPCS: 80053; 84439; 84443

== ENCOUNTER → 2020-05-28 | Outpatient (CLI) | payer OTHER | LOC: LAB 11:34 → LAB SHORT 11:34 | PROVIDERS: Nurse Practitioner Family | DX: Z01.419 Encounter for gynecological examination (general) (routine) without abnormal findings (principal) | CPT/HCPCS: G0145 ==

== ENCOUNTER → 2020-06-12 | Outpatient (CLI) | payer OTHER ==
[2020-06-12 20:09] LABS: Appearance, Urine Hazy (Clear); Bilirubin, Urine Neg (Neg); Blood, Urine 2+ (Neg); Color, Urine Yellow (P-Yellow); Glucose Qualitative, Urine Neg (Neg); Ketones, Urine Neg (Neg); Leukocyte Esterase, Urine 3+ (Neg); Nitrite, Urine Pos (Neg); Protein, Urine Neg (Neg); Urobilinogen, Urine NORM (Normal)
[2020-06-12 20:53] LABS: Bacteria Many /hpf; Squamous Epithelial Cells Few /hpf (Few); White Blood Cells, Urine 25-50 /hpf (0-5)
== END ==
LOC: LAB SHORT 19:26 → LAB 19:26
PROVIDERS: Nurse Practitioner Family
DX: N39.0 Urinary tract infection, site not specified (principal)
CPT/HCPCS: 81001; 87077; 87086; 87186

== ENCOUNTER → 2020-08-24 | Outpatient (CLI) | payer OTHER ==
[~2020-08-24] MED LIST changes: +ACET500 PO; +ACETAMINOPHEN500 MG PO; +ARIP10 PO; +AZIT500 PO; +BUSP10 PO; -BUSP15 PO; +CEFD300 PO; +EUTHYROX88 MCG PO; +FLUT1DIS5 INH; +HYDR1TAB94 PO; +LACT PO; +LIDO700A20 TOP; +METAMUCIL POWD575 GM PO; +MULVITA PO; +OMEP20ER PO; +ONDA4ODT MM; +ONDA4ODT SL; +Prednisone10 MG PO; +SENN187 PO; +SPIRIVA RESPIMAT4 G3 INH; +TRAZ100 PO; +VITAMIN D31000 UNI1 PO
== END ==
LOC: PLD 17:01 → LAB SHORT 17:01 → LAB 17:01
DX: R05 Cough (principal); Z20.828 Contact with and (suspected) exposure to other viral communicable diseases
CPT/HCPCS: U0003

== ENCOUNTER 2020-08-27 10:49 | Emergency (ER) | payer OTHER ==
[~2020-08-27] VITALS: Ht 167.6 cm; Wt 62.6 kg
[~2020-08-27 10:49] MED LIST changes: -ACET500 PO; -ACETAMINOPHEN500 MG PO; -ARIP10 PO; -AZIT500 PO; -BUSP10 PO; +BUSP15 PO; -CEFD300 PO; -EUTHYROX88 MCG PO; -FLUT1DIS5 INH; -HYDR1TAB94 PO; -LACT PO; -LIDO700A20 TOP; -METAMUCIL POWD575 GM PO; -MULVITA PO; -OMEP20ER PO; -ONDA4ODT MM; -ONDA4ODT SL; -Prednisone10 MG PO; -SENN187 PO; -SPIRIVA RESPIMAT4 G3 INH; -TRAZ100 PO; -VITAMIN D31000 UNI1 PO
[2020-08-27 11:23] LABS: BASOPHILS ABSOLUTE AUTO 0.06 K/mm3 (0.00-0.23); BASOPHILS PERCENT AUTO 1 % (0-2); EOSINOPHILS ABSOLUTE AUTO 0.29 K/mm3 (0.00-0.68); EOSINOPHILS PERCENT AUTO 4 % (0-6); Hematocrit 41.9 % (33.0-51.0); Hemoglobin 13.8 g/dL (11.5-16.0); IMMATURE GRAN ABSOLUTE AUTO 0.02 K/mm3 (0.00-0.10); IMMATURE GRAN PERCENT AUTO 0 % (0-1); LYMPHOCYTES ABSOLUTE AUTO 3.08 K/mm3 (0.84-5.20); LYMPHOCYTES PERCENT AUTO 42 % (21-46); MONOCYTES ABSOLUTE AUTO 0.63 K/mm3 (0.16-1.47); MONOCYTES PERCENT AUTO 9 % (4-13); Mean Corpuscular HGB 29.3 pg (26.0-34.0); Mean Corpuscular HGB Conc 32.9 g/dL (31.5-36.5); Mean Corpuscular Volume 89 fL (80-100); Mean Platelet Volume 9.4 fL (9.1-12.4); NEUTROPHILS PERCENT AUTO 44 % (41-73); Platelet Count 269 K/mm3 (150-400); RDW Coefficient Variation 12.5 % (11.7-14.2); RDW Standard Deviation 41.1 fL (35.1-46.3); Red Blood Cell Count 4.71 M/mm3 (3.80-5.20); White Blood Cell Count 7.28 K/mm3 (4.00-11.30)
[2020-08-27 11:39] LABS: Alanine Aminotransfer (ALT/SGP 16 U/L (12-78); Albumin, Blood 3.7 g/dL (3.4-5.0); Albumin/Globulin Ratio 1.1 (0.8-1.8); Alk Phos 57 U/L (50-136); Anion Gap 3 mmol/L (6-16); Aspartate Aminotrans (AST/SGOT 15 U/L (12-37); Bilirubin, Total 0.3 mg/dL (0.1-1.0); Blood Urea Nitrogen 9 mg/dL (8-24); Bun/Creatinine Ratio 12.7 (12.0-20.0); CO2, Blood 27 mmol/L (21-32); Calcium, Blood 8.8 mg/dL (8.5-10.1); Chloride, Blood 110 mmol/L (98-108); Creatinine, Blood 0.71 mg/dL (0.40-1.00); Globulin, Blood 3.3 g/dL (2.2-4.0); Glomerular Filtration Rate >60 (60-); Glucose, Blood 93 mg/dL (70-99); Sodium, Blood 140 mmol/L (136-145)
[2020-08-27] MEDS ORDERED: Prednisone20 MG PO (12:06)
== END 2020-08-27 13:20 | disposition home or self-care (01) ==
LOC: ER 10:49
PROVIDERS: Emergency Medicine
DX: J44.0 Chronic obstructive pulmonary disease with (acute) lower respiratory infection (principal); J44.1 Chronic obstructive pulmonary disease with (acute) exacerbation; J18.9 Pneumonia, unspecified organism; I50.9 Heart failure, unspecified; K21.9 Gastro-esophageal reflux disease without esophagitis; F31.9 Bipolar disorder, unspecified; I10 Essential (primary) hypertension; Z88.8 Allergy status to other drugs, medicaments and biological substances; Z88.6 Allergy status to analgesic agent; Z79.899 Other long term (current) drug therapy; Z79.51 Long term (current) use of inhaled steroids
CPT/HCPCS: 71045; 80053; 85025; 93005; 93010; 99284-25; J7512

== ENCOUNTER 2020-09-11 10:07 | Emergency (ER) | payer OTHER ==
[~2020-09-11] VITALS: Ht 167.6 cm; Wt 62.1 kg
[2020-09-11] MEDS ORDERED: FLUT1DIS5 INH (10:42)
[2020-09-11] MEDS ORDERED: CITA20 PO (10:43)
[2020-09-11] MEDS ORDERED: CLON2 PO ×2 (10:44)
[2020-09-11] MEDS ORDERED: EUTHYROX88 MCG PO (10:45)
[2020-09-11] MEDS ORDERED: LAMO100 PO (10:45)
[2020-09-11] MEDS ORDERED: MULVITA PO (10:46)
[2020-09-11] MEDS ORDERED: METAMUCIL POWD575 GM (10:46)
[2020-09-11] MEDS ORDERED: OMEP20ER PO (10:47)
[2020-09-11] MEDS ORDERED: Crestor40 MG PO (10:48)
[2020-09-11 11:02] LABS: Source, Urine Clean Catch
[2020-09-11] MEDS ORDERED: SENN187 PO (11:10)
[2020-09-11] MEDS ORDERED: SPIRIVA RESPIMAT4 G3 INH (11:11)
[2020-09-11] MEDS ORDERED: VITAMIN D3 (11:12)
[2020-09-11] MEDS ORDERED: TRAZ100 PO (11:12)
[2020-09-11] MEDS ORDERED: ACET500 PO (11:13)
[2020-09-11 11:27] LABS: Appearance, Urine Clear (Clear); Bilirubin, Urine Neg (Neg); Color, Urine Yellow (P-Yellow); Glucose Qualitative, Urine Neg (Neg); Ketones, Urine Neg (Neg); Specific Gravity, Urine 1.015 (1.003-1.022); Urobilinogen, Urine NORM (Normal)
[2020-09-11 11:31] LABS: Blood, Urine Neg (Neg); Leukocyte Esterase, Urine Neg (Neg); Nitrite, Urine Neg (Neg); Protein, Urine 1+ (Neg)
[2020-09-11] MEDS ORDERED: LIDO700A20 TOP (13:49)
[2020-09-11] MEDS ORDERED: ACETAMINOPHEN500 MG PO (13:49)
== END 2020-09-11 14:50 | disposition home or self-care (01) ==
LOC: ER 10:07
PROVIDERS: Emergency Medicine
DX: S09.90XA Unspecified injury of head, initial encounter (principal); M25.511 Pain in right shoulder; M25.531 Pain in right wrist; M25.562 Pain in left knee; M25.561 Pain in right knee; J44.9 Chronic obstructive pulmonary disease, unspecified; K21.9 Gastro-esophageal reflux disease without esophagitis; F31.9 Bipolar disorder, unspecified; I10 Essential (primary) hypertension; Z79.51 Long term (current) use of inhaled steroids; Z79.899 Other long term (current) drug therapy; Z88.8 Allergy status to other drugs, medicaments and biological substances; Z88.6 Allergy status to analgesic agent; W01.198A Fall on same level from slipping, tripping and stumbling with subsequent striking against other object, initial encounter
CPT/HCPCS: 70450; 72125; 72128; 73030; 73110; 73564; 99284-25; A9270-GY

== ENCOUNTER 2021-02-15 23:06 | Emergency (ER) | payer OTHER ==
[~2021-02-15] VITALS: Ht 177.8 cm; Wt 72.6 kg
[~2021-02-15 23:06] MED LIST changes: +ACET500 PO; +ACETAMINOPHEN500 MG PO; +AZIT500 PO; +BUSP10 PO; -BUSP15 PO; +CEFD300 PO; +EUTHYROX88 MCG PO; +FLUT1DIS5 INH; +HYDR1TAB94 PO; +LACT PO; +LIDO700A20 TOP; +METAMUCIL POWD575 GM PO; +MULVITA PO; +OMEP20ER PO; +ONDA4ODT SL; +Prednisone10 MG PO; +SENN187 PO; +SPIRIVA RESPIMAT4 G3 INH; +TRAZ100 PO; +VITAMIN D31000 UNI1 PO
[2021-02-15 23:19] LABS: BASOPHILS ABSOLUTE AUTO 0.05 K/mm3 (0.00-0.23); BASOPHILS PERCENT AUTO 1 % (0-2); EOSINOPHILS ABSOLUTE AUTO 0.32 K/mm3 (0.00-0.68); EOSINOPHILS PERCENT AUTO 5 % (0-6); Hematocrit 36.8 % (33.0-51.0); Hemoglobin 12.2 g/dL (11.5-16.0); IMMATURE GRAN ABSOLUTE AUTO 0.01 K/mm3 (0.00-0.10); IMMATURE GRAN PERCENT AUTO 0 % (0-1); LYMPHOCYTES ABSOLUTE AUTO 2.67 K/mm3 (0.84-5.20); LYMPHOCYTES PERCENT AUTO 40 % (21-46); MONOCYTES ABSOLUTE AUTO 0.61 K/mm3 (0.16-1.47); MONOCYTES PERCENT AUTO 9 % (4-13); Mean Corpuscular HGB 29.7 pg (26.0-34.0); Mean Corpuscular HGB Conc 33.2 g/dL (31.5-36.5); Mean Corpuscular Volume 90 fL (80-100); Mean Platelet Volume 9.1 fL (9.1-12.4); NEUTROPHILS PERCENT AUTO 46 % (41-73); Platelet Count 260 K/mm3 (150-400); RDW Standard Deviation 46.3 fL (35.1-46.3); Red Blood Cell Count 4.11 M/mm3 (3.80-5.20); White Blood Cell Count 6.76 K/mm3 (4.00-11.30)
[2021-02-15 23:39] LABS: Anion Gap 3 mmol/L (6-16); Blood Urea Nitrogen 9 mg/dL (8-24); Bun/Creatinine Ratio 12.1 (12.0-20.0); CO2, Blood 27 mmol/L (21-32); Calcium, Blood 8.6 mg/dL (8.5-10.1); Chloride, Blood 104 mmol/L (98-108); Creatinine, Blood 0.75 mg/dL (0.40-1.00); Glomerular Filtration Rate >60 (60-); Glucose, Blood 85 mg/dL (70-99); Potassium, Blood 3.7 mmol/L (3.5-5.5); Sodium, Blood 134 mmol/L (136-145)
[2021-02-15] MEDS ORDERED: FLUT1DIS5 INH (23:50)
[2021-02-15] MEDS ORDERED: ARIP10 PO (23:51)
[2021-02-17] MEDS ORDERED: ONDA4ODT MM (00:35)
== END 2021-02-16 05:15 | disposition home or self-care (01) ==
LOC: ER 23:06
PROVIDERS: Emergency Medicine
DX: S06.9X9A Unspecified intracranial injury with loss of consciousness of unspecified duration, initial encounter (principal); S01.112A Laceration without foreign body of left eyelid and periocular area, initial encounter; S16.1XXA Strain of muscle, fascia and tendon at neck level, initial encounter; J44.9 Chronic obstructive pulmonary disease, unspecified; I10 Essential (primary) hypertension; E03.9 Hypothyroidism, unspecified; K21.9 Gastro-esophageal reflux disease without esophagitis; Z79.52 Long term (current) use of systemic steroids; Z79.899 Other long term (current) drug therapy; Z88.6 Allergy status to analgesic agent; Z88.5 Allergy status to narcotic agent; Z91.018 Allergy to other foods; Z88.8 Allergy status to other drugs, medicaments and biological substances; W01.0XXA Fall on same level from slipping, tripping and stumbling without subsequent striking against object, initial encounter
CPT/HCPCS: 12013; 70450; 71045; 72125; 80048; 85025; 93005; 93010; 96374; 99285-25; A9270; J3010

== ENCOUNTER 2021-02-16 20:36 | Emergency (ER) | payer OTHER ==
[~2021-02-16] VITALS: Ht 167.6 cm; Wt 62.6 kg
[~2021-02-16 20:36] MED LIST changes: +ARIP10 PO
[2021-02-16 21:21] LABS: Source, Urine Clean Catch
[2021-02-16 21:24] LABS: Bilirubin, Urine Neg (Neg); Blood, Urine 1+ (Neg); Glucose Qualitative, Urine Neg (Neg); Ketones, Urine Neg (Neg); Leukocyte Esterase, Urine Neg (Neg); Nitrite, Urine Neg (Neg); Protein, Urine Neg (Neg); Specific Gravity, Urine 1.015 (1.003-1.022); Urobilinogen, Urine NORM (Normal)
[2021-02-16 21:33] LABS: Amorphous Light (0-Heavy); Appearance, Urine Hazy (Clear); Bacteria Few /hpf; Color, Urine Yellow (P-Yellow); Red Blood Cells, Urine 0-2 /hpf (0-2); Squamous Epithelial Cells Many /hpf (Few); White Blood Cells, Urine Rare /hpf (0-5)
[2021-02-16 22:38] LABS: BASOPHILS ABSOLUTE AUTO 0.02 K/mm3 (0.00-0.23); BASOPHILS PERCENT AUTO 0 % (0-2); EOSINOPHILS ABSOLUTE AUTO 0.04 K/mm3 (0.00-0.68); EOSINOPHILS PERCENT AUTO 0 % (0-6); Hematocrit 38.7 % (33.0-51.0); Hemoglobin 13.2 g/dL (11.5-16.0); IMMATURE GRAN ABSOLUTE AUTO 0.07 K/mm3 (0.00-0.10); IMMATURE GRAN PERCENT AUTO 1 % (0-1); LYMPHOCYTES ABSOLUTE AUTO 1.01 K/mm3 (0.84-5.20); LYMPHOCYTES PERCENT AUTO 9 % (21-46); MONOCYTES ABSOLUTE AUTO 0.65 K/mm3 (0.16-1.47); MONOCYTES PERCENT AUTO 6 % (4-13); Mean Corpuscular HGB 29.9 pg (26.0-34.0); Mean Corpuscular HGB Conc 34.1 g/dL (31.5-36.5); Mean Corpuscular Volume 88 fL (80-100); Mean Platelet Volume 9.1 fL (9.1-12.4); NEUTROPHILS ABSOLUTE AUTO 9.46 K/mm3 (1.96-9.15); NEUTROPHILS PERCENT AUTO 84 % (41-73); Platelet Count 262 K/mm3 (150-400); RDW Standard Deviation 45.3 fL (35.1-46.3); Red Blood Cell Count 4.42 M/mm3 (3.80-5.20); White Blood Cell Count 11.25 K/mm3 (4.00-11.30)
[2021-02-16 22:57] LABS: Alanine Aminotransfer (ALT/SGP 20 U/L (12-78); Albumin, Blood 3.8 g/dL (3.4-5.0); Albumin/Globulin Ratio 1.1 (0.8-1.8); Alk Phos 61 U/L (50-136); Anion Gap 6 mmol/L (6-16); Aspartate Aminotrans (AST/SGOT 15 U/L (12-37); Bilirubin, Total 0.4 mg/dL (0.1-1.0); Blood Urea Nitrogen 9 mg/dL (8-24); Bun/Creatinine Ratio 11.8 (12.0-20.0); CO2, Blood 25 mmol/L (21-32); Calcium, Blood 8.5 mg/dL (8.5-10.1); Chloride, Blood 103 mmol/L (98-108); Creatinine, Blood 0.76 mg/dL (0.40-1.00); Globulin, Blood 3.6 g/dL (2.2-4.0); Glomerular Filtration Rate >60 (60-); Glucose, Blood 96 mg/dL (70-99); Potassium, Blood 3.2 mmol/L (3.5-5.5); Sodium, Blood 134 mmol/L (136-145); Total Protein, Blood 7.4 g/dL (6.4-8.2)
[2021-02-17] MEDS ORDERED: ONDA4ODT MM (00:35)
== END 2021-02-17 01:03 | disposition home or self-care (01) ==
LOC: ER 20:36
PROVIDERS: Emergency Medicine
DX: S00.12XA Contusion of left eyelid and periocular area, initial encounter (principal); J44.9 Chronic obstructive pulmonary disease, unspecified; I10 Essential (primary) hypertension; E03.9 Hypothyroidism, unspecified; Z88.8 Allergy status to other drugs, medicaments and biological substances; Z88.6 Allergy status to analgesic agent; Z79.899 Other long term (current) drug therapy; W01.0XXA Fall on same level from slipping, tripping and stumbling without subsequent striking against object, initial encounter; Y92.002 Bathroom of unspecified non-institutional (private) residence as the place of occurrence of the external cause
CPT/HCPCS: 36415; 80053; 81001; 83690; 85025; 96374; 99284-25; A9270; J2405

== ENCOUNTER 2021-09-04 09:31 | Inpatient (IN) | payer OTHER ==
[~2021-09-04] VITALS: Ht 167.6 cm; Wt 67.3 kg
[~2021-09-04 09:31] MED LIST changes: +ONDA4ODT MM
[2021-09-04 10:40] LABS: BASOPHILS ABSOLUTE AUTO 0.03 K/mm3 (0.00-0.23); BASOPHILS PERCENT AUTO 0 % (0-2); EOSINOPHILS ABSOLUTE AUTO 0.05 K/mm3 (0.00-0.68); EOSINOPHILS PERCENT AUTO 0 % (0-6); Hematocrit 40.5 % (33.0-51.0); Hemoglobin 13.5 g/dL (11.5-16.0); IMMATURE GRAN ABSOLUTE AUTO 0.16 K/mm3 (0.00-0.10); IMMATURE GRAN PERCENT AUTO 1 % (0-1); LYMPHOCYTES ABSOLUTE AUTO 0.77 K/mm3 (0.84-5.20); LYMPHOCYTES PERCENT AUTO 5 % (21-46); MONOCYTES ABSOLUTE AUTO 0.75 K/mm3 (0.16-1.47); MONOCYTES PERCENT AUTO 5 % (4-13); Mean Corpuscular HGB 29.6 pg (26.0-34.0); Mean Corpuscular HGB Conc 33.3 g/dL (31.5-36.5); Mean Corpuscular Volume 89 fL (80-100); Mean Platelet Volume 8.8 fL (9.1-12.4); NEUTROPHILS ABSOLUTE AUTO 13.82 K/mm3 (1.96-9.15); NEUTROPHILS PERCENT AUTO 89 % (41-73); Platelet Count 300 K/mm3 (150-400); RDW Coefficient Variation 13.9 % (11.7-14.2); RDW Standard Deviation 44.8 fL (35.1-46.3); Red Blood Cell Count 4.56 M/mm3 (3.80-5.20); White Blood Cell Count 15.58 K/mm3 (4.00-11.30)
[2021-09-04 11:00] LABS: Alanine Aminotransfer (ALT/SGP 25 U/L (12-78); Albumin, Blood 3.7 g/dL (3.4-5.0); Albumin/Globulin Ratio 0.9 (0.8-1.8); Alk Phos 66 U/L (50-136); Anion Gap 8 mmol/L (6-16); Aspartate Aminotrans (AST/SGOT 21 U/L (12-37); Bilirubin, Total 0.5 mg/dL (0.1-1.0); Blood Urea Nitrogen 11 mg/dL (8-24); Bun/Creatinine Ratio 16.1 (12.0-20.0); CO2, Blood 27 mmol/L (21-32); Calcium, Blood 8.8 mg/dL (8.5-10.1); Chloride, Blood 104 mmol/L (98-108); Creatinine, Blood 0.69 mg/dL (0.40-1.00); Globulin, Blood 3.9 g/dL (2.2-4.0); Glomerular Filtration Rate >60 (60-); Glucose, Blood 104 mg/dL (70-99); Potassium, Blood 3.4 mmol/L (3.5-5.5); Sodium, Blood 139 mmol/L (136-145); Total Protein, Blood 7.6 g/dL (6.4-8.2); Troponin I <0.015 ng/mL (0.000-0.040)
[2021-09-04 11:14] LABS: Influenza A, PCR NEGATIVE (NEGATIVE); Influenza B, PCR NEGATIVE (NEGATIVE); Resp Syncytial Virus, PCR NEGATIVE (NEGATIVE); SARS-Cov-2 (COVID-19) PCR, MMC NEGATIVE (NEGATIVE)
[2021-09-04 11:43] LABS: Source, Urine Clean Catch
[2021-09-04 12:43] LABS: Appearance, Urine Clear (Clear); Bilirubin, Urine Neg (Neg); Blood, Urine Neg (Neg); Color, Urine Yellow (P-Yellow); Glucose Qualitative, Urine Neg (Neg); Ketones, Urine Neg (Neg); Leukocyte Esterase, Urine Neg (Neg); Nitrite, Urine Neg (Neg); Protein, Urine 1+ (Neg); Urobilinogen, Urine NORM (Normal)
--- NOTE | 2021-09-04 18:37 | NUR ---
PATIENT ARRIVES FROM E. ABOUT 1753. ABLE TO STAND AND PIVOT TO BED. HX MULTIPLE FALLS AT HOME. LIVES ASSISTED LIVING IN [place]. HAD COUGH AND SOB STARTING EARLY THIS AM. PRODUCTIVE CLEAR SPUTUM. NORMALLY NOT ON OXYGEN AT HOME, NOW ON 2 LPM. IV LF A.C. GIVEN INSENTIVE SPIROMETRY AND ADVISED HOW AND WHEN TO USE. LUNGS WITH WHEEZES UPPER LOBES, COARSE TO DIM LOWER. COOPERATIVE. PLEASANT. BED ALARM ON. AWARE TO CALL US FOR ANY ASSISTANCE. TM
[2021-09-04] MEDS ORDERED: prednisolone (21:50)
--- NOTE | 2021-09-05 04:19 | NUR ---
SHIFT SUMMARY PT IS AA&3. FULL CODE STATUS. NO COMPLAINT OF PAIN. PT STILL ON 2L NC NO ACUTE CHANGES THROUGH THE NIGHT. BED IN LOWER POSITION, CALL LIGHT IN REACH. WILL CONTINUE TO MONITOR.
[2021-09-05 05:44] LABS: BASOPHILS ABSOLUTE AUTO 0.04 K/mm3 (0.00-0.23); BASOPHILS PERCENT AUTO 0 % (0-2); EOSINOPHILS PERCENT AUTO 0 % (0-6); Hematocrit 39.8 % (33.0-51.0); Hemoglobin 13.3 g/dL (11.5-16.0); IMMATURE GRAN ABSOLUTE AUTO 0.15 K/mm3 (0.00-0.10); IMMATURE GRAN PERCENT AUTO 1 % (0-1); LYMPHOCYTES ABSOLUTE AUTO 0.97 K/mm3 (0.84-5.20); LYMPHOCYTES PERCENT AUTO 5 % (21-46); MONOCYTES ABSOLUTE AUTO 0.24 K/mm3 (0.16-1.47); MONOCYTES PERCENT AUTO 1 % (4-13); Mean Corpuscular HGB 29.3 pg (26.0-34.0); Mean Corpuscular HGB Conc 33.4 g/dL (31.5-36.5); Mean Corpuscular Volume 88 fL (80-100); NEUTROPHILS ABSOLUTE AUTO 20.05 K/mm3 (1.96-9.15); NEUTROPHILS PERCENT AUTO 94 % (41-73); Platelet Count 277 K/mm3 (150-400); RDW Standard Deviation 44.6 fL (35.1-46.3); Red Blood Cell Count 4.54 M/mm3 (3.80-5.20); White Blood Cell Count 21.45 K/mm3 (4.00-11.30)
[2021-09-05 06:46] LABS: Anion Gap 8 mmol/L (6-16); Blood Urea Nitrogen 15 mg/dL (8-24); Bun/Creatinine Ratio 23.1 (12.0-20.0); CO2, Blood 26 mmol/L (21-32); Calcium, Blood 9.1 mg/dL (8.5-10.1); Chloride, Blood 106 mmol/L (98-108); Creatinine, Blood 0.65 mg/dL (0.40-1.00); Glomerular Filtration Rate >60 (60-); Glucose, Blood 156 mg/dL (70-99); Potassium, Blood 3.8 mmol/L (3.5-5.5); Sodium, Blood 140 mmol/L (136-145)
--- NOTE | 2021-09-05 10:00 | NUR ---
AWARE MEDS HAVE BEEN RECONCILLED FROM FAX FROM [facility]
--- NOTE | 2021-09-05 10:20 | NUR ---
Interview with [facility] Community Printing Agent 1. Who did you speak with? Spoke with patient 2. What is the patient's prior level of functions? Patient lives at [facility], an assisted living facility. 3. What is the patient's current living situation? Patient lives at [facility], an assisted living facility. 4. Is the patient and/or family able to provide transportation to and from doctor's appointments and crab picker prescriptions? Assisted living facility handles transportation needs. Son/family is able to assist as well. 5. Does patient still drive? No 6. POA/PCP/NOK: PCP-Payton Garcia/NOK-son Flynn 7. ANTICIPATED DISCHARGE NEEDS/GOALS: TBD -Return to [facility] -DME: patient presently uses four wheeled walker (in good repair)/further needs will be assessed -Daughter in law will provide transportation 8. List barriers to discharge: No barriers on this date. 9. Discharge Plan: TBD 10. PCP Follow up appointment: Will be scheduled within seven calendar days of discharge. 11. OTHER COMMENTS: None
--- NOTE | 2021-09-05 12:08 | NUR ---
WALKED TO BATHROOM OFF OF OXYGEN, DESAT WHEN SITTING TO 88 AND DID NOT RECOUP DURING REST. PLACED BACK ON 1 LMP VIA NC WHILE IN BED.
--- NOTE | 2021-09-05 14:28 | NUR ---
TALKED TO ABOUT RESTARTING PATIENTS HOME MEDS. PATIENT ON MANY MOOD MEDS AND HAS NOT TAKEN THEM FOR 2 DAYS. MD TO CHECK MED REC AND ORDER.
--- NOTE | 2021-09-05 16:04 | NUR ---
TALKED TO ABOUT PATIENT HAVING A BIPOLAR BREAKTHROUGH. ASKED IF CAN GIVE LAMICTAL AND BUSPAR EARLY AND IF CAN GIVE ABILIFY NOW SHE DID NOT GET IT THIS AM? OK TO GIVE.
--- NOTE | 2021-09-06 04:22 | NUR ---
SHIFT SUMMARY NO ACUTE EVNTS THROUGH THE NIGHT. ALL MEDS GIVEN. PT STIL ON 1L NC. PT IS RESTING COMFORTABLY IN BED. BED IN LOWER POSITION, CALL LIGHT IN REACH. WILL CONTINUE TO MONITOR.
[2021-09-06 06:02] LABS: BASOPHILS ABSOLUTE AUTO 0.02 K/mm3 (0.00-0.23); BASOPHILS PERCENT AUTO 0 % (0-2); EOSINOPHILS PERCENT AUTO 0 % (0-6); Hematocrit 40.1 % (33.0-51.0); Hemoglobin 13.5 g/dL (11.5-16.0); IMMATURE GRAN PERCENT AUTO 1 % (0-1); LYMPHOCYTES ABSOLUTE AUTO 0.99 K/mm3 (0.84-5.20); LYMPHOCYTES PERCENT AUTO 5 % (21-46); MONOCYTES ABSOLUTE AUTO 0.41 K/mm3 (0.16-1.47); MONOCYTES PERCENT AUTO 2 % (4-13); Mean Corpuscular HGB 29.6 pg (26.0-34.0); Mean Corpuscular HGB Conc 33.7 g/dL (31.5-36.5); Mean Corpuscular Volume 88 fL (80-100); Mean Platelet Volume 9.3 fL (9.1-12.4); NEUTROPHILS PERCENT AUTO 92 % (41-73); Platelet Count 299 K/mm3 (150-400); RDW Coefficient Variation 13.8 % (11.7-14.2); Red Blood Cell Count 4.56 M/mm3 (3.80-5.20); White Blood Cell Count 19.42 K/mm3 (4.00-11.30)
[2021-09-06 06:33] LABS: Anion Gap 5 mmol/L (6-16); Blood Urea Nitrogen 17 mg/dL (8-24); Bun/Creatinine Ratio 32.7 (12.0-20.0); CO2, Blood 26 mmol/L (21-32); Chloride, Blood 107 mmol/L (98-108); Creatinine, Blood 0.52 mg/dL (0.40-1.00); Glomerular Filtration Rate >60 (60-); Glucose, Blood 142 mg/dL (70-99); Potassium, Blood 3.9 mmol/L (3.5-5.5); Sodium, Blood 138 mmol/L (136-145)
--- NOTE | 2021-09-06 18:02 | NUR ---
SHIFT SUMMARY PATIENT IS ALERT AND ORIENTED X4, PLEASANT AND COOPERATIVE WITH CARE. PATIENT WILL CALL TO MAKE NEEDS KNOWN. THE PATIENT WAS ON 1 LPM. NOW ON RA SATTING @ 92 PERCENT. THE PATIENT WAS UP TO THE SHOWER TODAY. INDEPENDENT. RECEIVED A DOSE OF ABX. NO ACUTE CHANGES. VITAL SIGNS STABLE. CALL LIGHT WITHIN REACH. THIS NURSE WILL CONTINUE TO CARE FOR THE PATIENT UNTIL SHIFT REPORT IS GIVEN TO THE ONCOMING NURSE.
--- NOTE | 2021-09-07 04:14 | NUR ---
SHIFT SUMMARY NO ACUTE EVENTS THROUGH THE NIGHT. PT AA0X4, STILL ON RA .PT IS INDEPENDENT. BED IN LOWER POSITION,CALL LIGHT IN REACH. WILL CONTINUE TO MONITOR .
[2021-09-07 09:07] LABS: BASOPHILS ABSOLUTE AUTO 0.01 K/mm3 (0.00-0.23); BASOPHILS PERCENT AUTO 0 % (0-2); EOSINOPHILS PERCENT AUTO 0 % (0-6); Hematocrit 41.3 % (33.0-51.0); Hemoglobin 13.8 g/dL (11.5-16.0); IMMATURE GRAN ABSOLUTE AUTO 0.07 K/mm3 (0.00-0.10); IMMATURE GRAN PERCENT AUTO 1 % (0-1); LYMPHOCYTES ABSOLUTE AUTO 0.84 K/mm3 (0.84-5.20); LYMPHOCYTES PERCENT AUTO 7 % (21-46); MONOCYTES ABSOLUTE AUTO 0.41 K/mm3 (0.16-1.47); MONOCYTES PERCENT AUTO 3 % (4-13); Mean Corpuscular HGB 29.3 pg (26.0-34.0); Mean Corpuscular HGB Conc 33.4 g/dL (31.5-36.5); Mean Corpuscular Volume 88 fL (80-100); NEUTROPHILS ABSOLUTE AUTO 10.72 K/mm3 (1.96-9.15); NEUTROPHILS PERCENT AUTO 89 % (41-73); Platelet Count 355 K/mm3 (150-400); RDW Coefficient Variation 13.9 % (11.7-14.2); Red Blood Cell Count 4.71 M/mm3 (3.80-5.20); White Blood Cell Count 12.05 K/mm3 (4.00-11.30)
[2021-09-07 09:29] LABS: Anion Gap 7 mmol/L (6-16); Blood Urea Nitrogen 18 mg/dL (8-24); Bun/Creatinine Ratio 29.5 (12.0-20.0); CO2, Blood 24 mmol/L (21-32); Calcium, Blood 8.8 mg/dL (8.5-10.1); Chloride, Blood 108 mmol/L (98-108); Creatinine, Blood 0.61 mg/dL (0.40-1.00); Glomerular Filtration Rate >60 (60-); Glucose, Blood 178 mg/dL (70-99); Potassium, Blood 3.7 mmol/L (3.5-5.5); Sodium, Blood 139 mmol/L (136-145)
[2021-09-07] MEDS ORDERED: Azithromycin500 MG PO (15:03)
[2021-09-07] MEDS ORDERED: DELTASONE20 MG PO (15:04)
--- NOTE | 2021-09-07 15:55 | NUR ---
DISCHARGE DISCHARGE INSTRUCTIONS, MEDICATION LIST AND FOLLOW UP APPOINTMENT REVIEWED WITH PT AND HER DAUGHTER. QUESTIONS/CONCERNS ANSWERED. PT AND DAUGHTER VERBALLY INDICATED UNDERSTAND OF ALL INSTRUCTIONS RECEIVED. ESCORTED OUT VIA W/C BY PETER
--- NOTE | 2021-09-09 08:21 | NUR ---
Per Dr. Penn discharge appropriate on 09/07/21. Patient does not oppose to discharge and looking forward to returning home to [facility] in [place]. Patient's daughter in law provided transportation. DME: Patient has a 4 wheeled walker/rollator. Patient knows to contact her PCP if she has any questions regarding medication management or any medical or social service needs. Transition of care will contact patient to schedule hospital discharge PCP follow up; explained to patient to expect a call for appointment coordination. No barriers to discharge at this time. Patient has a strong support system.
== END 2021-09-07 15:57 | disposition home or self-care (01) | DRG 871 ==
LOC: ER 09:31 → MEDS 09:32 → ERHOLD 09:32 → MEDS 17:51
PROVIDERS: Emergency Medicine; ADMIT Internal Medicine
DX: A41.89 Other specified sepsis (principal); J96.01 Acute respiratory failure with hypoxia; J44.1 Chronic obstructive pulmonary disease with (acute) exacerbation; J44.0 Chronic obstructive pulmonary disease with (acute) lower respiratory infection; Z20.822 Contact with and (suspected) exposure to COVID-19; J20.8 Acute bronchitis due to other specified organisms; G47.00 Insomnia, unspecified; Z28.21 Immunization not carried out because of patient refusal; F31.9 Bipolar disorder, unspecified; G47.33 Obstructive sleep apnea (adult) (pediatric); F43.10 Post-traumatic stress disorder, unspecified; E89.0 Postprocedural hypothyroidism; K21.9 Gastro-esophageal reflux disease without esophagitis; E78.5 Hyperlipidemia, unspecified; I10 Essential (primary) hypertension; M19.90 Unspecified osteoarthritis, unspecified site; F12.20 Cannabis dependence, uncomplicated; F41.1 Generalized anxiety disorder; R32 Unspecified urinary incontinence; G89.29 Other chronic pain; Z96.612 Presence of left artificial shoulder joint; G43.909 Migraine, unspecified, not intractable, without status migrainosus; Z85.828 Personal history of other malignant neoplasm of skin; Z90.49 Acquired absence of other specified parts of digestive tract; Z90.710 Acquired absence of both cervix and uterus; Z90.89 Acquired absence of other organs; Z98.890 Other specified postprocedural states; Z88.6 Allergy status to analgesic agent; Z88.8 Allergy status to other drugs, medicaments and biological substances; Z88.5 Allergy status to narcotic agent; Z91.018 Allergy to other foods; Z79.899 Other long term (current) drug therapy; Z98.51 Tubal ligation status; Z98.84 Bariatric surgery status; Z91.048 Other nonmedicinal substance allergy status
CPT/HCPCS: 0241U; 36415; 71045; 80048; 80053; 83605; 84145; 84484; 85025; 87040; 93005; 93010; 94640; 94664; 94760; 96365; 96372; 96375; 96376; 99285-25; A9270; G0378; J0456; J0696; J1650; J2405; J2920; J7050

== ENCOUNTER → 2021-12-05 | Outpatient (CLI) | payer OTHER ==
[~2021-12-05] MED LIST changes: +Azithromycin500 MG PO; +DELTASONE20 MG PO; +prednisolone
[2021-12-05 10:44] LABS: BASOPHILS ABSOLUTE AUTO 0.04 K/mm3 (0.00-0.23); BASOPHILS PERCENT AUTO 1 % (0-2); EOSINOPHILS ABSOLUTE AUTO 0.19 K/mm3 (0.00-0.68); EOSINOPHILS PERCENT AUTO 3 % (0-6); Hematocrit 40.7 % (33.0-51.0); Hemoglobin 13.5 g/dL (11.5-16.0); IMMATURE GRAN ABSOLUTE AUTO 0.01 K/mm3 (0.00-0.10); IMMATURE GRAN PERCENT AUTO 0 % (0-1); LYMPHOCYTES ABSOLUTE AUTO 1.97 K/mm3 (0.84-5.20); LYMPHOCYTES PERCENT AUTO 32 % (21-46); MONOCYTES ABSOLUTE AUTO 0.54 K/mm3 (0.16-1.47); MONOCYTES PERCENT AUTO 9 % (4-13); Mean Corpuscular HGB 30.3 pg (26.0-34.0); Mean Corpuscular HGB Conc 33.2 g/dL (31.5-36.5); Mean Corpuscular Volume 91 fL (80-100); NEUTROPHILS ABSOLUTE AUTO 3.51 K/mm3 (1.96-9.15); NEUTROPHILS PERCENT AUTO 56 % (41-73); Platelet Count 265 K/mm3 (150-400); RDW Coefficient Variation 13.2 % (11.7-14.2); RDW Standard Deviation 44.4 fL (35.1-46.3); Red Blood Cell Count 4.46 M/mm3 (3.80-5.20); White Blood Cell Count 6.26 K/mm3 (4.00-11.30)
[2021-12-05 11:21] LABS: Alanine Aminotransfer (ALT/SGP 25 U/L (12-78); Albumin, Blood 3.9 g/dL (3.4-5.0); Albumin/Globulin Ratio 1.1 (0.8-1.8); Alk Phos 75 U/L (40-126); Anion Gap 5 mmol/L (6-16); Aspartate Aminotrans (AST/SGOT 21 U/L (12-37); Bilirubin, Total 0.2 mg/dL (0.1-1.0); Blood Urea Nitrogen 5 mg/dL (8-24); Bun/Creatinine Ratio 6.7 (12.0-20.0); CO2, Blood 32 mmol/L (21-32); Calcium, Blood 8.5 mg/dL (8.5-10.1); Chloride, Blood 105 mmol/L (98-108); Creatinine, Blood 0.75 mg/dL (0.40-1.00); Globulin, Blood 3.4 g/dL (2.2-4.0); Glomerular Filtration Rate >60 (60-); Glucose, Blood 86 mg/dL (70-99); Potassium, Blood 3.8 mmol/L (3.5-5.5); Sodium, Blood 142 mmol/L (136-145); Total Protein, Blood 7.3 g/dL (6.4-8.2)
== END | disposition home or self-care (01) ==
LOC: LAB SHORT 10:38 → LAB 10:38
PROVIDERS: Physician Assistant
DX: E03.9 Hypothyroidism, unspecified (principal)
CPT/HCPCS: 80053; 84443; 85025

== ENCOUNTER → 2022-06-11 | Outpatient (CLI) | payer OTHER | END | disposition home or self-care (01) | LOC: LAB 10:57 → LAB SHORT 10:57 | DX: J84.9 Interstitial pulmonary disease, unspecified (principal) | CPT/HCPCS: 87070; 87205 ==

== ENCOUNTER 2022-09-01 12:21 | Emergency (ER) | payer OTHER ==
[~2022-09-01] VITALS: Ht 167.6 cm; Wt 68.0 kg
[2022-09-01 13:20] LABS: BASOPHILS ABSOLUTE AUTO 0.02 K/mm3 (0.00-0.23); BASOPHILS PERCENT AUTO 0 % (0-2); EOSINOPHILS ABSOLUTE AUTO 0.06 K/mm3 (0.00-0.68); EOSINOPHILS PERCENT AUTO 1 % (0-6); Hematocrit 42.4 % (33.0-51.0); Hemoglobin 14.4 g/dL (11.5-16.0); IMMATURE GRAN ABSOLUTE AUTO 0.01 K/mm3 (0.00-0.10); IMMATURE GRAN PERCENT AUTO 0 % (0-1); LYMPHOCYTES ABSOLUTE AUTO 1.64 K/mm3 (0.84-5.20); LYMPHOCYTES PERCENT AUTO 29 % (21-46); MONOCYTES ABSOLUTE AUTO 0.61 K/mm3 (0.16-1.47); MONOCYTES PERCENT AUTO 11 % (4-13); Mean Corpuscular HGB 30.3 pg (26.0-34.0); Mean Corpuscular Volume 89 fL (80-100); Mean Platelet Volume 9.1 fL (9.1-12.4); NEUTROPHILS ABSOLUTE AUTO 3.37 K/mm3 (1.96-9.15); NEUTROPHILS PERCENT AUTO 59 % (41-73); Platelet Count 225 K/mm3 (150-400); RDW Coefficient Variation 11.9 % (11.7-14.2); Red Blood Cell Count 4.76 M/mm3 (3.80-5.20); White Blood Cell Count 5.71 K/mm3 (4.00-11.30)
[2022-09-01 13:35] LABS: Albumin, Blood 3.6 g/dL (3.4-5.0); Albumin/Globulin Ratio 0.9 (0.8-1.8); Bilirubin, Total 0.3 mg/dL (0.1-1.0); Creatinine, Blood 0.67 mg/dL (0.40-1.00); Globulin, Blood 4.2 g/dL (2.2-4.0); Potassium, Blood 3.9 mmol/L (3.5-5.5); Total Protein, Blood 7.8 g/dL (6.4-8.2)
[2022-09-01 15:05] LABS: Influenza B, PCR NEGATIVE (NEGATIVE); Resp Syncytial Virus, PCR NEGATIVE (NEGATIVE); SARS-Cov-2 (COVID-19) PCR, MMC NEGATIVE (NEGATIVE)
[2022-09-01 15:07] LABS: Influenza A, PCR POSITIVE (NEGATIVE)
[2022-09-01] MEDS ORDERED: PRED20 PO (16:01)
[2022-09-01] MEDS ORDERED: ONDA4ODT MM (16:01)
[2022-09-01] MEDS ORDERED: AZIT250 PO (16:01)
== END 2022-09-01 16:24 | disposition home or self-care (01) ==
LOC: ER 12:21
PROVIDERS: Emergency Medicine
DX: J10.1 Influenza due to other identified influenza virus with other respiratory manifestations (principal); J44.1 Chronic obstructive pulmonary disease with (acute) exacerbation; I10 Essential (primary) hypertension; Z20.822 Contact with and (suspected) exposure to COVID-19
CPT/HCPCS: 0241U; 71045; 80053; 83880; 84484; 85025; 93005; 93010; 94644; 94664; A9270; J7512

== ENCOUNTER → 2023-07-17 | Outpatient (CLI) | payer OTHER ==
[~2023-07-17] MED LIST changes: +ATROVENT 0.02% NEB; +Acetaminophen325 M1 PO; +BIOTENE SPRAY MT; +CLOP75 PO; +DICLOFENAC SOD100 G1 TOP; +FLONASE ALLERG9.9 M2 INH; +GUAI600T33 PO; +IPRAT-ALBUT 0.5-3 ML; +MIRALAX17 GM PO; +PANT40 PO; +PRED20 PO; +ZYRTEC10 M1 PO; +[UNRECOGNIZED DRUG - OTHER] PO
[2023-07-17 18:10] LABS: Bilirubin, Urine Neg (Neg); Blood, Urine Neg (Neg); Glucose Qualitative, Urine Neg (Neg); Ketones, Urine Neg (Neg); Leukocyte Esterase, Urine Neg (Neg); Nitrite, Urine Neg (Neg); Protein, Urine Neg (Neg); Urobilinogen, Urine NORM (Normal)
[2023-07-17 18:30] LABS: Appearance, Urine Clear (Clear); Color, Urine Pale Yellow (P-Yellow)
== END | disposition home or self-care (01) ==
LOC: LAB SHORT 14:45 → LAB 14:45
PROVIDERS: Family Medicine
DX: N39.0 Urinary tract infection, site not specified (principal)
CPT/HCPCS: 81003

== ENCOUNTER → 2023-07-22 | Outpatient (CLI) | payer OTHER ==
[2023-07-22 17:31] LABS: Source, Urine Clean Catch
[2023-07-22 18:11] LABS: Appearance, Urine Clear (Clear); Bilirubin, Urine Neg (Neg); Blood, Urine Neg (Neg); Color, Urine Yellow (P-Yellow); Glucose Qualitative, Urine Neg (Neg); Ketones, Urine Neg (Neg); Leukocyte Esterase, Urine Neg (Neg); Nitrite, Urine Neg (Neg); Protein, Urine Neg (Neg); Urobilinogen, Urine NORM (Normal)
== END ==
LOC: LAB 17:30 → LAB SHORT 17:30
PROVIDERS: Family Medicine
DX: N39.0 Urinary tract infection, site not specified (principal)
CPT/HCPCS: 81003; 87086

== ENCOUNTER → 2023-07-29 | Outpatient (CLI) | payer OTHER | LOC: LAB SHORT 12:08 → LAB 12:08 | DX: C44.519 Basal cell carcinoma of skin of other part of trunk (principal) | CPT/HCPCS: 88305 ==

== ENCOUNTER → 2023-08-03 | Outpatient (CLI) | payer OTHER ==
[2023-08-03 18:49] LABS: Source, Urine Voided
[2023-08-03 19:49] LABS: Appearance, Urine Clear (Clear); Bilirubin, Urine Neg (Neg); Blood, Urine Neg (Neg); Color, Urine Yellow (P-Yellow); Glucose Qualitative, Urine Neg (Neg); Ketones, Urine Neg (Neg); Leukocyte Esterase, Urine Neg (Neg); Nitrite, Urine Neg (Neg); Protein, Urine Neg (Neg); Urobilinogen, Urine NORM (Normal)
== END ==
LOC: LAB 18:47 → LAB SHORT 18:47
PROVIDERS: Family Medicine
DX: N39.0 Urinary tract infection, site not specified (principal)
CPT/HCPCS: 81003

== ENCOUNTER → 2023-08-26 | Outpatient (CLI) | payer OTHER | LOC: LAB SHORT 14:22 → LAB 14:22 | DX: C44.519 Basal cell carcinoma of skin of other part of trunk (principal) | CPT/HCPCS: 88305 ==

== ENCOUNTER 2023-11-07 18:56 | Emergency (ER) | payer OTHER ==
[~2023-11-07] VITALS: Ht 167.6 cm; Wt 72.1 kg
[2023-11-07 19:28] LABS: BASOPHILS ABSOLUTE AUTO 0.03 K/mm3 (0.00-0.23); BASOPHILS PERCENT AUTO 0 % (0-2); EOSINOPHILS ABSOLUTE AUTO 0.21 K/mm3 (0.00-0.68); EOSINOPHILS PERCENT AUTO 3 % (0-6); Hematocrit 34.4 % (33.0-51.0); Hemoglobin 11.6 g/dL (11.5-16.0); IMMATURE GRAN ABSOLUTE AUTO 0.02 K/mm3 (0.00-0.10); IMMATURE GRAN PERCENT AUTO 0 % (0-1); LYMPHOCYTES ABSOLUTE AUTO 3.41 K/mm3 (0.84-5.20); LYMPHOCYTES PERCENT AUTO 45 % (21-46); MONOCYTES ABSOLUTE AUTO 0.71 K/mm3 (0.16-1.47); MONOCYTES PERCENT AUTO 9 % (4-13); Mean Corpuscular HGB 30.5 pg (26.0-34.0); Mean Corpuscular HGB Conc 33.7 g/dL (31.5-36.5); Mean Corpuscular Volume 91 fL (80-100); Mean Platelet Volume 8.9 fL (9.1-12.4); NEUTROPHILS ABSOLUTE AUTO 3.18 K/mm3 (1.96-9.15); NEUTROPHILS PERCENT AUTO 42 % (41-73); Platelet Count 214 K/mm3 (150-400); RDW Coefficient Variation 12.3 % (11.7-14.2); RDW Standard Deviation 41.1 fL (35.1-46.3); White Blood Cell Count 7.56 K/mm3 (4.00-11.30)
[2023-11-07 19:56] LABS: Albumin, Blood 3.6 g/dL (3.4-5.0); Albumin/Globulin Ratio 1.2 (0.8-1.8); Bilirubin, Total 0.3 mg/dL (0.1-1.0); Bun/Creatinine Ratio 17.8 (12.0-20.0); Calcium, Blood 8.5 mg/dL (8.5-10.1); Creatinine, Blood 0.68 mg/dL (0.40-1.00); Globulin, Blood 3.1 g/dL (2.2-4.0); Potassium, Blood 3.8 mmol/L (3.5-5.5); Total Protein, Blood 6.7 g/dL (6.4-8.2)
[2023-11-07 21:00] VITALS: BP 122/79
== END 2023-11-07 21:30 | disposition home or self-care (01) ==
LOC: ER 18:56
PROVIDERS: Emergency Medicine
DX: S00.03XA Contusion of scalp, initial encounter (principal); W19.XXXA Unspecified fall, initial encounter; R55 Syncope and collapse
CPT/HCPCS: 70450; 80053; 85025; 93005; 93010; 99284-25

== ENCOUNTER 2023-11-18 08:28 | Emergency (ER) | payer OTHER ==
[~2023-11-18] VITALS: Ht 162.6 cm; Wt 75.8 kg
[2023-11-18 09:07] VITALS: BP 177/77
[2023-11-18] MEDS ORDERED: ClonazePAM 1 MG Tab PO ONE (10:00)
[2023-11-18] MEDS ORDERED: CLON1 PO (10:55)
== END 2023-11-18 12:47 | disposition home or self-care (01) ==
LOC: ER 08:28
DX: F41.9 Anxiety disorder, unspecified (principal); R25.1 Tremor, unspecified; Z88.5 Allergy status to narcotic agent; Z88.6 Allergy status to analgesic agent; Z91.018 Allergy to other foods; Z79.899 Other long term (current) drug therapy; J44.9 Chronic obstructive pulmonary disease, unspecified; I10 Essential (primary) hypertension; M19.90 Unspecified osteoarthritis, unspecified site; E03.9 Hypothyroidism, unspecified; K21.9 Gastro-esophageal reflux disease without esophagitis
CPT/HCPCS: 93005; 93010; 99284-25; A9270

== ENCOUNTER → 2024-01-15 | Outpatient (CLI) | payer OTHER ==
[~2024-01-15] MED LIST changes: +CLON1 PO
[2024-01-15 17:23] LABS: Source, Urine Voided
[2024-01-15 18:34] LABS: Appearance, Urine Hazy (Clear); Bilirubin, Urine Neg (Neg); Blood, Urine Neg (Neg); Color, Urine Yellow (P-Yellow); Glucose Qualitative, Urine Neg (Neg); Ketones, Urine Neg (Neg); Leukocyte Esterase, Urine 1+ (Neg); Nitrite, Urine Neg (Neg); Protein, Urine 1+ (Neg); Urobilinogen, Urine NORM (Normal)
[2024-01-15 18:46] LABS: Bacteria Many /hpf; Mucus Light (0-Heavy); Squamous Epithelial Cells Few /hpf (Few)
== END | disposition home or self-care (01) ==
LOC: LAB SHORT 17:21 → LAB 17:21
PROVIDERS: Physician Assistant Medical
DX: N39.46 Mixed incontinence (principal)
CPT/HCPCS: 81001; 87086

== ENCOUNTER → 2024-01-15 | Outpatient (CLI) | payer OTHER | END | disposition home or self-care (01) | LOC: LAB SHORT 07:27 → LAB 07:27 | DX: N90.89 Other specified noninflammatory disorders of vulva and perineum (principal) | CPT/HCPCS: 88305 ==

== ENCOUNTER → 2024-01-18 | Outpatient (CLI) | payer OTHER ==
[2024-01-21 23:28] LABS: MYCOPLASMA GENITALIUM BY PCR Not Detected; MYCOPLASMA HOMINIS BY PCR Not Detected; UREAPLASMA MYCOPLASMA SOURCE Urine; UREAPLASMA PARVUM BY PCR Not Detected; UREAPLASMA UREALYTICUM BY PCR Detected
== END | disposition home or self-care (01) ==
LOC: LAB SHORT 18:09 → LAB 18:09
PROVIDERS: Physician Assistant Medical
DX: N39.46 Mixed incontinence (principal)
CPT/HCPCS: 87563; 87798

== ENCOUNTER → 2024-03-21 | Outpatient (CLI) | payer OTHER ==
[2024-03-21 17:21] LABS: Source, Urine Voided
[2024-03-21 18:40] LABS: Appearance, Urine Hazy (Clear); Bilirubin, Urine Neg (Neg); Blood, Urine 2+ (Neg); Color, Urine Yellow (P-Yellow); Glucose Qualitative, Urine Neg (Neg); Ketones, Urine Neg (Neg); Leukocyte Esterase, Urine 3+ (Neg); Nitrite, Urine Pos (Neg); Protein, Urine 2+ (Neg); Urobilinogen, Urine NORM (Normal)
[2024-03-21 18:57] LABS: Bacteria Many /hpf; Squamous Epithelial Cells Mod /hpf (Few); Transitional Epithelial Cells Rare /hpf (0-Rare); White Blood Cells, Urine 50-100 /hpf (0-5)
[2024-03-21 18:58] LABS: Renal Epithelial Rare /hpf (0-Rare); Yeast/Fungi Urine Rare /hpf
== END ==
LOC: LAB 17:18 → LAB SHORT 17:18
PROVIDERS: Family Medicine
DX: N39.0 Urinary tract infection, site not specified (principal)
CPT/HCPCS: 81001; 87077; 87086; 87186

== ENCOUNTER 2024-04-05 14:19 | Emergency (ER) | payer OTHER ==
[~2024-04-05] VITALS: Ht 167.6 cm; Wt 73.5 kg
[2024-04-05 14:34] LABS: BASOPHILS ABSOLUTE AUTO 0.05 K/mm3 (0.00-0.23); BASOPHILS PERCENT AUTO 1 % (0-2); EOSINOPHILS ABSOLUTE AUTO 0.15 K/mm3 (0.00-0.68); EOSINOPHILS PERCENT AUTO 2 % (0-6); Hematocrit 40.5 % (33.0-51.0); Hemoglobin 13.6 g/dL (11.5-16.0); IMMATURE GRAN ABSOLUTE AUTO 0.03 K/mm3 (0.00-0.10); IMMATURE GRAN PERCENT AUTO 0 % (0-1); LYMPHOCYTES ABSOLUTE AUTO 3.36 K/mm3 (0.84-5.20); LYMPHOCYTES PERCENT AUTO 40 % (21-46); MONOCYTES ABSOLUTE AUTO 0.58 K/mm3 (0.16-1.47); MONOCYTES PERCENT AUTO 7 % (4-13); Mean Corpuscular HGB 31.1 pg (26.0-34.0); Mean Corpuscular HGB Conc 33.6 g/dL (31.5-36.5); Mean Corpuscular Volume 93 fL (80-100); Mean Platelet Volume 8.8 fL (9.1-12.4); NEUTROPHILS PERCENT AUTO 50 % (41-73); Platelet Count 284 K/mm3 (150-400); RDW Coefficient Variation 12.9 % (11.7-14.2); RDW Standard Deviation 43.8 fL (35.1-46.3); Red Blood Cell Count 4.37 M/mm3 (3.80-5.20); White Blood Cell Count 8.37 K/mm3 (4.00-11.30)
[2024-04-05 14:54] LABS: Albumin, Blood 3.8 g/dL (3.4-5.0); Albumin/Globulin Ratio 0.9 (0.8-1.8); Bilirubin, Total 0.4 mg/dL (0.1-1.0); Bun/Creatinine Ratio 15.8 (12.0-20.0); Calcium, Blood 8.5 mg/dL (8.5-10.1); Creatinine, Blood 0.7 mg/dL (0.40-1.00); Globulin, Blood 4.1 g/dL (2.2-4.0); Potassium, Blood 4.5 mmol/L (3.5-5.5); Total Protein, Blood 7.9 g/dL (6.4-8.2)
[2024-04-05 16:11] VITALS: BP 144/85
[2024-04-05 16:28] LABS: Source, Urine Clean Catch
[2024-04-05 16:39] LABS: Appearance, Urine Clear (Clear); Bilirubin, Urine Neg (Neg); Blood, Urine Neg (Neg); Glucose Qualitative, Urine Neg (Neg); Ketones, Urine Neg (Neg); Leukocyte Esterase, Urine Neg (Neg); Nitrite, Urine Neg (Neg); Protein, Urine Neg (Neg); Urobilinogen, Urine NORM (Normal)
[2024-04-05 16:57] LABS: Color, Urine Pale Yellow (P-Yellow)
[2024-04-05] MEDS ORDERED: Ketorolac Tromethamine 30mg Vial IM ONE (18:30)
== END 2024-04-05 18:34 | disposition home or self-care (01) ==
LOC: ER 14:19
PROVIDERS: Physician Assistant
DX: M54.50 Low back pain, unspecified (principal); J44.9 Chronic obstructive pulmonary disease, unspecified; I10 Essential (primary) hypertension; E03.9 Hypothyroidism, unspecified; K21.9 Gastro-esophageal reflux disease without esophagitis; Z79.890 Hormone replacement therapy; Z79.899 Other long term (current) drug therapy; Z88.5 Allergy status to narcotic agent; Z91.018 Allergy to other foods; Z91.09 Other allergy status, other than to drugs and biological substances; Z96.612 Presence of left artificial shoulder joint
CPT/HCPCS: 74177; 80053; 81003; 83690; 85025; 96372-59; 99284-25; J1885; Q9967

== ENCOUNTER → 2025-04-03 | Outpatient (CLI) | payer OTHER ==
[2025-04-03 17:38] LABS: Source, Urine Clean Catch
[2025-04-03 19:46] LABS: Bilirubin, Urine Neg (Neg); Color, Urine Yellow (P-Yellow); Glucose Qualitative, Urine Neg (Neg); Ketones, Urine Neg (Neg); Leukocyte Esterase, Urine 3+ (Neg); Protein, Urine 2+ (Neg); Specific Gravity, Urine 1.015 (1.003-1.022); Urobilinogen, Urine NORM (Normal)
[2025-04-03 19:58] LABS: White Blood Cells, Urine TNTC /hpf (0-5)
== END ==
LOC: LAB 17:37 → LAB SHORT 17:37
PROVIDERS: Family Medicine
DX: N39.0 Urinary tract infection, site not specified (principal)
CPT/HCPCS: 81001; 87077; 87086; 87186

== ENCOUNTER → 2025-04-13 | Outpatient (CLI) | payer OTHER | LOC: LAB 12:21 → LAB SHORT 12:21 | DX: N39.0 Urinary tract infection, site not specified (principal) | CPT/HCPCS: 87086 ==

== ENCOUNTER 2025-06-05 10:08 | Emergency (ER) | payer OTHER ==
[~2025-06-05] VITALS: Ht 167.6 cm; Wt 77.1 kg
[2025-06-05 10:46] LABS: BASOPHILS ABSOLUTE AUTO 0.04 K/mm3 (0.00-0.23); BASOPHILS PERCENT AUTO 1 % (0-2); EOSINOPHILS ABSOLUTE AUTO 0.13 K/mm3 (0.00-0.68); EOSINOPHILS PERCENT AUTO 2 % (0-6); Hematocrit 40.2 % (33.0-51.0); Hemoglobin 13.5 g/dL (11.5-16.0); IMMATURE GRAN ABSOLUTE AUTO 0.01 K/mm3 (0.00-0.10); IMMATURE GRAN PERCENT AUTO 0 % (0-1); LYMPHOCYTES ABSOLUTE AUTO 2.00 K/mm3 (0.84-5.20); LYMPHOCYTES PERCENT AUTO 31 % (21-46); MONOCYTES ABSOLUTE AUTO 0.54 K/mm3 (0.16-1.47); MONOCYTES PERCENT AUTO 9 % (4-13); Mean Corpuscular HGB Conc 33.6 g/dL (31.5-36.5); Mean Corpuscular Volume 91 fL (80-100); NEUTROPHILS ABSOLUTE AUTO 3.67 K/mm3 (1.96-9.15); NEUTROPHILS PERCENT AUTO 57 % (41-73); NRBC ABSOLUTE 0.00 K/mm3 (0.00-0.02); NRBC Auto 0.0 /100 WBC (0.0-0.2); Platelet Count 219 K/mm3 (150-400); RDW Coefficient Variation 12.1 % (11.7-14.2); RDW Standard Deviation 40.7 fL (35.1-46.3)
[2025-06-05 11:11] LABS: Anion Gap 9.0 mmol/L (3-11); Blood Urea Nitrogen 12.0 mg/dL (8-24); CO2, Blood 26.0 mmol/L (21-32); Calcium, Blood 8.3 mg/dL (8.5-10.1); Chloride, Blood 109.0 mmol/L (98-108); Creatinine, Blood 0.61 mg/dL (0.40-1.00); Glucose, Blood 98.0 mg/dL (70-99); Potassium, Blood 3.6 mmol/L (3.5-5.5); Sodium, Blood 140.0 mmol/L (136-145)
[2025-06-05] MEDS ORDERED: FAMO20 PO (15:35)
[2025-06-05] MEDS ORDERED: ASPIR 8181 M1 PO (15:35)
[2025-06-05 15:41] VITALS: BP 149/76
== END 2025-06-05 15:43 | disposition home or self-care (01) ==
LOC: ER 10:08
PROVIDERS: Registered Nurse
DX: G45.9 Transient cerebral ischemic attack, unspecified (principal); J44.9 Chronic obstructive pulmonary disease, unspecified; Z88.6 Allergy status to analgesic agent; Z88.5 Allergy status to narcotic agent; Z91.018 Allergy to other foods; Z91.048 Other nonmedicinal substance allergy status
CPT/HCPCS: 70450; 70496; 70498; 80048; 85025; 93005; 93010; 93246; 99284-25; A9270; Q9967